=== PATIENT | female | born 1940 ===

== ENCOUNTER 2020-12-01 18:06 | Inpatient (IN) | payer BC, MEDICARE ==
[2020-12-01] MEDS ORDERED: VANCOMYCIN IV PER PHARMACY 1 EACH MISC MISCELLANE PRN (20:32)
[2020-12-01] MEDS ORDERED: hydrOXYzine pamoate 25 MG CAP PO PRN (20:34)
[2020-12-01] MEDS ORDERED: VANCOMYCIN 1,250 MG in SODIUM CHLORIDE 0.9% 250 ML IVPB ONE (21:00)
[2020-12-01 21:22] LABS: Basophils % (A) 0 %; Eosinophils # (A) 0.2 k/uL (0-0.7); Eosinophils % (A) 2 %; HCT 30.7 % (34.0-46.0); HGB 9.7 gm/dL (11.4-16.0); Hypochromasia Marked; Lymphocytes # (A) 1.4 k/uL (1.0-4.8); Lymphocytes % (A) 14 %; MCH 31.8 pg (25.0-35.0); MCHC 31.6 g/dL (31.0-37.0); MCV 100.6 fL (80.0-100.0); Mean Platelet Volume 7.5; Monocytes # (A) 0.6 k/uL (0-1.0); Monocytes % (A) 6 %; Neutrophils # (A) 7.3 k/uL (1.3-7.7); Neutrophils % (A) 76 %; Platelet Count 345 k/uL (150-450); RBC 3.06 m/uL (3.80-5.40); RDW 13.3 % (11.5-15.5); WBC 9.5 k/uL (3.8-10.6)
[2020-12-01 21:30] LABS: ALT 8 U/L (4-34); AST 33 U/L (14-36); African American GFR (CKD) >90 (>60 ml/min/1.73 sqM); Albumin/Globulin Ratio 0.9; Alkaline Phosphatase 76 U/L (38-126); Anion Gap 14 mmol/L; Blood Urea Nitrogen 15 mg/dL (7-17); Calcium 8.5 mg/dL (8.4-10.2); Carbon Dioxide 19 mmol/L (22-30); Chloride 104 mmol/L (98-107); Globulin 3.3 g/dL; Glucose 81 mg/dL (74-99); Non-African American GFR(CKD) 83 (>60 ml/min/1.73 sqM); Potassium 3.8 mmol/L (3.5-5.1); Sodium 137 mmol/L (137-145); Total Bilirubin 0.6 mg/dL (0.2-1.3); Total Protein 6.3 g/dL (6.3-8.2)
[2020-12-01] MEDS: BACLOFEN 10 MG TAB PO SCH (21:40)
[2020-12-01] MEDS: HEPARIN SODIUM,PORCINE/PF 5,000 UNIT/0.5 ML SYRINGE SQ SCH (21:40)
[2020-12-01] MEDS: SODIUM CHLORIDE 0.9% 1,000 ML IV SCH (21:40)
[2020-12-02] MEDS: HEPARIN SODIUM,PORCINE/PF 5,000 UNIT/0.5 ML SYRINGE SQ SCH ×2 (07:45→21:15)
[2020-12-02] MEDS: METOPROLOL SUCCINATE (ER) 50 MG TAB.ER.24H PO SCH (07:45)
[2020-12-02] MEDS: ATORVASTATIN 40 MG TAB PO SCH (07:46)
[2020-12-02] MEDS: FAMOTIDINE 20 MG TAB PO SCH (07:46)
[2020-12-02] MEDS: BACLOFEN 10 MG TAB PO SCH ×3 (07:46→21:15)
[2020-12-02] MEDS: MEMANTINE 10 MG TAB PO SCH (07:46)
[2020-12-02] MEDS: CHOLESTYRAMINE (WITH SUGAR) 4 GM PACKET PO SCH (07:46)
[2020-12-02] MEDS: PANTOPRAZOLE 40 MG TABLET PO SCH (07:46)
[2020-12-02 07:59] LABS: African American GFR (CKD) >90 (>60 ml/min/1.73 sqM); Non-African American GFR(CKD) 84 (>60 ml/min/1.73 sqM)
[2020-12-02] MEDS ORDERED: PRAVASTATIN SODIUM 40 MG TAB PO SCH (09:00)
[2020-12-02] MEDS ORDERED: IBUPROFEN 400 MG TAB PO PRN (10:13)
[2020-12-02] MEDS ORDERED: MAGNESIUM HYDROXIDE 2,400 MG/10 ML CUP PO PRN ×2 (10:13)
[2020-12-02] MEDS ORDERED: traMADol 50 MG TAB PO PRN (10:13)
[2020-12-02] MEDS ORDERED: CALCIUM CARBONATE 500 MG CHEWABLE PO PRN (10:13)
[2020-12-02] MEDS: VANCOMYCIN 1,250 MG in SODIUM CHLORIDE 0.9% 250 ML IVPB SCH ×2 (10:41→23:55)
[2020-12-02] MEDS ORDERED: traMADol 50 MG TAB PO SCH (10:45)
--- NOTE | 2020-12-02 11:34 | P.HPIM ---
History of Present Illness Patient is an 80-year-old female transferred from [facility] because of the altered mental status and infection of the left shoulder. Patient had a left shoulder surgery about 2 weeks ago, diabetic surgeon is not available at this time because of which are as asked to transfer the patient here. Patient the is found to have infection of the left shoulder with an abscess in the sinus which was drained in ER at [facility] cultures were obtained at that time. Patient doesn't have any fevers. Denied much of the history from the patient patient is alert oriented 2 her baseline is unknown at this time. I jono vargas the patient consulted arthritic surgery here infectious disease will be consulted as well. Patient is also on tobramycin does have a PICC line unsure why she is on tobramycin we are trying to find out from the [place] [facility] where she is staying along his she is on tobramycin and the reason for tobramycin. was started on IV vancomycin. REVIEW OF SYSTEMS: Unable to obtain due to above-mentioned reasons PHYSICAL EXAMINATION: GENERAL: The patient is alert and oriented x2, not in any acute distress. Well developed, well nourished. HEENT: Pupils are round and equally reacting to light. EOMI. No scleral icterus. No conjunctival pallor. Normocephalic, atraumatic. No pharyngeal erythema. No thyromegaly. CARDIOVASCULAR: S1 and S2 present. No murmurs, rubs, or gallops. PULMONARY: Chest is clear to auscultation, no wheezing or crackles. ABDOMEN: Soft, nontender, nondistended, normoactive bowel sounds. No palpable organomegaly. MUSCULOSKELETAL: No joint swelling or deformity. EXTREMITIES: No cyanosis, clubbing, or pedal edema. Left shoulder is packed NEUROLOGICAL: Patient is confused unable to assess clearly doesn't appear to have any focal deficits SKIN: No rashes. Assessment and plan Altered mental status, toxic encephalopathy from left shoulder infection. Vi staril will be discontinued and avoid opiates, benzodiazepines, barbiturates and anticholinergic medications -Postoperative infection of the left shoulder patient had a sinus and an abscess drained, cultures were obtained at the other facility arthritic surgery was consulted patient was started on vancomycin tobramycin was discontinued. -History of dementia baseline is not clear -Gastroesophageal reflux disease -Hyperlipidemia -Hypertension -As per the history documented patient has history of seizures, but patient appears to be in tramadol significantly higher dose for pain, along with Vistar il. We'll cut down the dose of tramadol is continue Vistaril DVT prophylaxis: Subcutaneous heparin Past Medical History Past Medical History: Dementia, GERD/Reflux, Hyperlipidemia, Hypertension, Seizure Disorder Additional Past Medical History / Comment(s): urinay tract infection, History of Any Multi-Drug Resistant Organisms: None Reported Additional Past Surgical History / Comment(s): right humerous fx repair Past Anesthesia/Blood Transfusion Reactions: Unable to Obtain Past Psychological History: Unable to Obtain, Depression Smoking Status: Unknown if ever smoked Medications and Allergies Home Medications Medication Instructions Recorded Confirmed Type Acetaminophen [Tylenol] 500 mg PO Q6H PRN 12/01/20 12/01/20 History Atorvastatin [Lipitor] 40 mg PO HS@209912/01/20 12/01/20 History Calcium Carbonate [Tums] 1,000 mg PO TID PRN 12/01/20 12/01/20 History Cholestyramine (with Sugar) 4 gm PO DAILY@89912/01/20 12/01/20 History [Questran] Docusate [Colace] 100 mg PO BID@0900,209912/01/20 12/01/20 History Ibuprofen [Motrin] 400 mg PO Q6HR PRN 12/01/20 12/01/20 History Lactobacillus Acidophilus 1 tab PO BID@0900,1700 12/01/20 12/01/20 History [Acidophilus] Magnesium Hydroxide [Milk of 2,400 mg PO DAILY PRN 12/01/20 12/01/20 History Magnesia Concentrate] Magnesium Hydroxide [Milk of 2,400 mg PO Q72H PRN 12/01/20 12/01/20 History Magnesia] Memantine [Namenda] 10 mg PO BID@0900,209912/01/20 12/01/20 History Metoprolol Succinate [Toprol XL] 50 mg PO HS@209912/01/20 12/01/20 History Omeprazole 20 mg PO DAILY@0612/01/20 12/01/20 History Polyethylene Glycol 3350 [Miralax] 17 gm PO DAILY@0912/01/20 12/01/20 History Venlafaxine HCl ER [Effexor Xr] 150 mg PO DAILY@0912/01/2021 History traMADol HCL 100 mg PO Q12H PRN 12/01/20 12/01/20 History traMADol HCL 100 mg PO Q8H 12/01/20 12/01/20 History Tobramycin 140mg In 100ml 140 mg IVPB DAILY 12/02/20 12/02/20 History Allergies Allergy/AdvReac Type Severity Reaction Status Date / Time bupropion Allergy Unknown Verified 12/01/20 21:57 codeine Allergy Unknown Verified 12/01/20 21:57 fentanyl Allergy Unknown Verified 12/01/20 21:57 metoclopramide Allergy Unknown Verified 12/01/20 21:57 midazolam Allergy Unknown Verified 12/01/20 21:57 morphine Allergy Unknown Verified 12/01/20 21:57 nitrofurantoin Allergy Unknown Verified 12/01/20 21:57 simvastatin Allergy Unknown Verified 12/01/20 21:57 Physical Exam Vitals: Vital Signs Temp Pulse Resp BP Pulse Ox 12/02/20 07:08 98 F 74 17 163/66 98 12/02/20 02:00 98 F 69 16 140/70 100 12/01/20 20:00 18 12/01/20 19:52 98.2 F 68 16 136/61 98 Intake and Output 12/01/20 12/02/20 12/02/20 22:59 06:59 14:59 Other: Voiding Method Diaper # Voids 1 Weight 64 kg Results CBC & Chem 7: 12/01/20 21:08 12/02/20 07:15 Labs: Abnormal Lab Results - Last 24 Hours (Table) 12/01/20 12/01/20 Range/Units 21:08 21:08 RBC 3.06 L (3.80-5.40) m/uL Hgb 9.7 L (11.4-16.0) gm/dL Hct 30.7 L (34.0-46.0) % MCV 100.6 H (80.0-100.0) fL Carbon Dioxide 19 L (22-30) mmol/L Albumin 3.0 L (3.5-5.0) g/dL Thrombosis Risk Factor Assmnt - Choose All That Apply Any of the Below Risk Factors Present?: Yes Each Factor Represents 1 point: Medical pt on bed rest Other Risk Factors: Yes Each Risk Factor Represents 3 Points: Age 75 years or older Other congenital or acquired thrombophilia - If yes, enter type in comment: No Thrombosis Risk Factor Assessment Total Risk Factor Score: 4 Thrombosis Risk Factor Assessment Level: Moderate Risk
[2020-12-02] MEDS ORDERED: TOBRAMYCIN SULFATE 140 MG in SODIUM CHLORIDE 0.9% 100 ML IVPB SCH (12:00)
--- NOTE | 2020-12-02 12:24 | P.CNOR ---
History of Present Illness - HPI Consult date: 12/02/20 Requesting physician: Matt Covarrubias Consult reason: other (post-op infection) History of present illness: Patient comes to the hospital with left shoulder postop infection. Patient had surgery performed for left proximal humerus fracture on 11/09/[address] Flores in [facility], where IM cammy and screws were placed. Patient had follow up appointment with Dr. Flores on 11/23/2020 and there was concern for infection as shoulder was red for over a week. PICC line was placed and patient started on Tobramycin. With limited reports and wthout any CD containgin image, read of CT left shoulder performed at [place] on 12/01/20 showed an IM cammy and screws in left proximal humerus with displacement of of humeral head relative to orthopedic hardware. Patient seems to be in significant amount of pain during the encounter. She is lying semirecumbent in bed moaning in pain. Due to her mental status, patient is not able to answer questions in reasonable fashion. When asked where and when she had the surgery she is not able to answer. Patient denies chest pain, fever, shortness breath, nausea, vomiting, change in vision, loss of bowel/bladder control. Past Medical History Past Medical History: Dementia, GERD/Reflux, Hyperlipidemia, Hypertension, Seizure Disorder Additional Past Medical History / Comment(s): urinay tract infection, History of Any Multi-Drug Resistant Organisms: None Reported Additional Past Surgical History / Comment(s): right humerous fx repair Past Anesthesia/Blood Transfusion Reactions: Unable to Obtain Past Psychological History: Unable to Obtain, Depression Smoking Status: Unknown if ever smoked Medications and Allergies Home Medications Medication Instructions Recorded Confirmed Type Acetaminophen [Tylenol] 500 mg PO Q6H PRN 12/01/20 12/01/20 History Atorvastatin [Lipitor] 40 mg PO HS@209912/01/20 12/01/20 History Calcium Carbonate [Tums] 1,000 mg PO TID PRN 12/01/20 12/01/20 History Cholestyramine (with Sugar) 4 gm PO DAILY@0900 12/01/20 12/01/20 History [Questran] Docusate [Colace] 100 mg PO BID@0900,2100 12/01/20 12/01/20 History Ibuprofen [Motrin] 400 mg PO Q6HR PRN 12/01/20 12/01/20 History Lactobacillus Acidophilus 1 tab PO BID@0900,1700 12/01/20 12/01/20 History [Acidophilus] Magnesium Hydroxide [Milk of 2,400 mg PO DAILY PRN 12/01/20 12/01/20 History Magnesia Concentrate] Magnesium Hydroxide [Milk of 2,400 mg PO Q72H PRN 12/01/20 12/01/20 History Magnesia] Memantine [Namenda] 10 mg PO BID@0900,2100 12/01/20 12/01/20 History Metoprolol Succinate [Toprol XL] 50 mg PO HS@2100 12/01/20 12/01/20 History Omeprazole 20 mg PO DAILY@0600 12/01/20 12/01/20 History Polyethylene Glycol 3350 [Miralax] 17 gm PO DAILY@0900 12/01/20 12/01/20 History Venlafaxine HCl ER [Effexor Xr] 150 mg PO DAILY@0900 12/01/20 12/01/20 History traMADol HCL 100 mg PO Q12H PRN 12/01/20 12/01/20 History traMADol HCL 100 mg PO Q8H 12/01/20 12/01/20 History Tobramycin 140mg In 100ml 140 mg IVPB DAILY 12/02/20 12/02/20 History Allergies Allergy/AdvReac Type Severity Reaction Status Date / Time bupropion Allergy Unknown Verified 12/01/20 21:57 codeine Allergy Unknown Verified 12/01/20 21:57 fentanyl Allergy Unknown Verified 12/01/20 21:57 metoclopramide Allergy Unknown Verified 12/01/20 21:57 midazolam Allergy Unknown Verified 12/01/20 21:57 morphine Allergy Unknown Verified 12/01/20 21:57 nitrofurantoin Allergy Unknown Verified 12/01/20 21:57 simvastatin Allergy Unknown Verified 12/01/20 21:57 Physical Examination Left shoulder : Left shoulder anterior region erythematous, calor, fluctuant, actively draining purulent discharge. 2 lateral incisions are present, appear to have healed nicely. Patient is unable to abduct, flex left shoulder due to being in significant pain. Patient is neurovascularly intact in the left hand and distally. Radial pulses intact, 2+. Cap refill under 3 seconds in left hand. Patient is able to flex and extend left wrist. Patient has good analysis manager strength in left hand. Results - Labs Labs: Abnormal Lab Results - Last 24 Hours (Table) 12/01/20 12/01/20 Range/Units 21:08 21:08 RBC 3.06 L (3.80-5.40) m/uL Hgb 9.7 L (11.4-16.0) gm/dL Hct 30.7 L (34.0-46.0) % MCV 100.6 H (80.0-100.0) fL Carbon Dioxide 19 L (22-30) mmol/L Albumin 3.0 L (3.5-5.0) g/dL H & H 12/01/20 Range/Units 21:08 Hgb 9.7 L (11.4-16.0) gm/dL Hct 30.7 L (34.0-46.0) % Result Diagrams: 12/01/20 21:08 12/02/20 07:15 Assessment and Plan Assessment: 1. Left shoulder post-op infection Plan: 1. Left shoulder post-op infection - x-ray left shoulder ordered. Will review imaging and discuss plan with attending. Possible Incision and drainage 2. Appreciate medical management and ID management -started on Vanco 3. GI prophylaxis/DVT prophylaxis- Colace, Protonix; heparin 4. Pain management - stable at this time 5. PT/OT - nonweightbearing left arm Time with Patient: Less than 30
--- NOTE | 2020-12-02 12:26 | XR ---
EXAMINATION TYPE: XR shoulder complete LT DATE OF EXAM: 12/02/2020 COMPARISON: NONE HISTORY: Pain TECHNIQUE: 3 views submitted FINDINGS: Postsurgical change involving the left humerus. Diffuse osteopenia. Humeral neck fracture l ine persists. Apical pleural thickening. Chronic interstitial lung disease suspected. IMPRESSION: Postoperative change of the left shoulder with persistent offset at the level of humeral neck. No prior exams available for comparison.
[2020-12-02 12:29] LABS: Basophils # (A) 0.1 k/uL (0-0.2); Basophils % (A) 1 %; Eosinophils # (A) 0.2 k/uL (0-0.7); Eosinophils % (A) 2 %; HCT 35.7 % (34.0-46.0); HGB 10.8 gm/dL (11.4-16.0); Hypochromasia Marked; Lymphocytes # (A) 1.4 k/uL (1.0-4.8); Lymphocytes % (A) 15 %; MCH 31.2 pg (25.0-35.0); MCHC 30.4 g/dL (31.0-37.0); MCV 102.8 fL (80.0-100.0); Macrocytosis Slight; Mean Platelet Volume 9.1; Monocytes # (A) 0.8 k/uL (0-1.0); Monocytes % (A) 8 %; Neutrophils # (A) 7.2 k/uL (1.3-7.7); Neutrophils % (A) 74 %; Platelet Count 336 k/uL (150-450); RBC 3.47 m/uL (3.80-5.40); RDW 12.9 % (11.5-15.5); WBC 9.8 k/uL (3.8-10.6)
[2020-12-02] MEDS: LACTOBACILLUS ACIDOPH & BULGAR 1 EACH PACKET PO SCH (15:20)
--- NOTE | 2020-12-02 15:31 | P.PN ---
Progress Note - Text Progress Note Date: 12/02/20 After reviewing physical exam findings, imaging test and lab results, we would like to proceed with surgical intervention for the left shoulder. Dr. Montanez was able to review this case also. Our plan is to proceed with an incision and drainage with irrigation and debridement of the left shoulder, hardware removal with placement of antibiotic spacer. We would like to proceed with this on 12/03/2020. I was able to contact the patient's daughter over the phone regarding her current medical condition. We did discuss the risk and benefits of the procedure, she is in good understanding and would like to proceed. We are in the process of obtaining consent from her Nothing by mouth after midnight Pain control, continue use of current medication GI and DVT prophylaxis per primary medical service Medical recommendations Further recommendations to follow
[2020-12-02] MEDS: traMADol 50 MG TAB PO SCH ×2 (16:15→23:56)
[2020-12-02] MEDS: SODIUM CHLORIDE 0.9% 1,000 ML IV SCH ×2 (16:21→19:41)
[2020-12-02] MEDS: DOCUSATE 100 MG CAP PO SCH (21:15)
--- NOTE | 2020-12-02 23:37 | P.CONS ---
History of Present Illness - Reason for Consult Consult date: 12/02/20 left shoulder infection Requesting physician: Matt Covarrubias - Chief Complaint left shoulder pain and redness x few days - History of Present Illness History of present illness : Patient is 80-year-old female [place] [facility] resident who recently did have a left shoulder fracture patient is status post left proximal humerus fracture repair on 11/09/[address] Flores in the [facility] with the patient did have a IM cammy and screws placed on a follow-up visit on 11/23/2020 the patient was noticed to have left shoulder swelling and redness concerning for a joint infection patient did get a PICC line and was placed on tobramycin there is no clear history of if any cultures were done seem to be more of antibiotic treatment patient was sent to the [facility] hospital yesterday for worsening swelling redness and purulent drainage from her left shoulder area patient did have a CT of the left shoulder and was subsequently transferred to [facility] for further management on arrival at this facility patient was afebrile and no fever has been recorded s ubsequently did have a normal white count kidney function was normal x-rays of the shoulder postoperative changes of the left shoulder with persistent offset at the level of the humeral neck patient tobramycin was discontinued she was started on vancomycin infectious disease was consulted for further management of antibiotic therapy most information has been obtained from review the chart and nursing staff as the patient herself was not able to provide any history Review of system: Positive point has been mentioned in HPI complete review could not be obtained because of underlying mental status Past medical history : Reviewed, documented below Past surgical history : Reviewed, documented below Social history: Reviewed, documented below Medications: Reviewed, as documented below GENERAL DESCRIPTION: Elderly female lying in bed, no distress. No tachypnea or accessory muscle of respiration use. HEENT: Shows Pallor , no scleral icterus. Oral mucous membrane is dry. NECK: Trachea central, no thyromegaly. LUNGS: Unlabored breathing. Clear to auscultation anteriorly. No wheeze or ground crewman aircraft support ckle. HEART: S1, S2, regular rate and rhythm. ABDOMEN: Soft, no tenderness , guarding or rigidity EXTREMITIES: Left shoulder did have swelling redness and purulent drainage which was cultured. SKIN: No rash, no masses palpable. NEUROLOGICAL: The patient is lethargic but arousable orientation could not be determined LABS AND RADIOLOGY: Reviewed results see below Assessment : Patient presented to hospital with increasing swelling redness and pain to left shoulder area in this patient who did have recent left humeral fracture repair at the outside facility now presenting with in 2 weeks with love rgical site infection will need to cover for the both gram-positive as well as gram-negative pathogen Plan: 1-await orthopedics I&D of this area and deep cultures, may need removal of an infected hardware 2-vancomycin pharmacy to dose her with a target trough of 15 while watching her kidney function and Vanco trough closely. 3-cefepime 2 g every 12hr We will follow on clinical condition and cultures to further adjust medication if needed Past Medical History Past Medical History: Dementia, GERD/Reflux, Hyperlipidemia, Hypertension, Seizure Disorder Additional Past Medical History / Comment(s): urinay tract infection, History of Any Multi-Drug Resistant Organisms: None Reported Additional Past Surgical History / Comment(s): right humerous fx repair Past Anesthesia/Blood Transfusion Reactions: Unable to Obtain Past Psychological History: Unable to Obtain, Depression Smoking Status: Unknown if ever smoked Medications and Allergies Home Medications Medication Instructions Recorded Confirmed Type Acetaminophen [Tylenol] 500 mg PO Q6H PRN 12/01/20 12/01/20 History Atorvastatin [Lipitor] 40 mg PO HS@209912/01/20 12/01/20 History Calcium Carbonate [Tums] 1,000 mg PO TID PRN 12/01/20 12/01/20 History Cholestyramine (with Sugar) 4 gm PO DAILY@0900 12/01/20 12/01/20 History [Questran] Docusate [Colace] 100 mg PO BID@0900,209912/01/20 12/01/20 History Ibuprofen [Motrin] 400 mg PO Q6HR PRN 12/01/20 12/01/20 History Lactobacillus Acidophilus 1 tab PO BID@0900,1700 12/01/20 12/01/20 History [Acidophilus] Magnesium Hydroxide [Milk of 2,400 mg PO DAILY PRN 12/01/20 12/01/20 History Magnesia Concentrate] Magnesium Hydroxide [Milk of 2,400 mg PO Q72H PRN 12/01/20 12/01/20 History Magnesia] Memantine [Namenda] 10 mg PO BID@0900,2100 12/01/2012/01/21 History Metoprolol Succinate [Toprol XL] 50 mg PO HS@2100 12/01/20 12/01/20 History Omeprazole 20 mg PO DAILY@0612/01/20 12/01/20 History Polyethylene Glycol 3350 [Miralax] 17 gm PO DAILY@0912/01/20 12/01/20 History Venlafaxine HCl ER [Effexor Xr] 150 mg PO DAILY@0912/01/20 12/01/20 History traMADol HCL 100 mg PO Q12H PRN 12/01/20 12/01/20 History traMADol HCL 100 mg PO Q8H 12/01/20 12/01/20 History Tobramycin 140mg In 100ml 140 mg IVPB DAILY 12/02/20 12/02/20 History Allergies Allergy/AdvReac Type Severity Reaction Status Date / Time bupropion Allergy Unknown Verified 12/01/20 21:57 codeine Allergy Unknown Verified 12/01/20 21:57 fentanyl Allergy Unknown Verified 12/01/20 21:57 metoclopramide Allergy Unknown Verified 12/01/20 21:57 midazolam Allergy Unknown Verified 12/01/20 21:57 morphine Allergy Unknown Verified 12/01/20 21:57 nitrofurantoin Allergy Unknown Verified 12/01/20 21:57 simvastatin Allergy Unknown Verified 12/01/20 21:57 Physical Exam Vitals: Vital Signs Temp Pulse Resp BP Pulse Ox 12/02/20 14:00 98.6 F 67 18 154/73 97 12/02/20 07:08 98 F 74 17 163/66 98 12/02/20 02:00 98 F 69 16 140/70 100 12/01/20 20:00 18 12/01/20 19:52 98.2 F 68 16 136/61 98 Intake and Output 12/02/20 12/02/20 12/02/20 06:59 14:59 22:59 Other: # Voids 1 2 Results CBC & Chem 7: 12/02/20 07:15 12/02/20 07:15 Labs: Abnormal Lab Results - Last 24 Hours (Table) 12/01/20 12/01/20 12/02/20 Range/Units 21:08 21:08 07:15 RBC 3.06 L 3.47 L (3.80-5.40) m/uL Hgb 9.7 L 10.8 L (11.4-16.0) gm/dL Hct 30.7 L (34.0-46.0) % MCV 100.6 H 102.8 H (80.0-100.0) fL MCHC 30.4 L (31.0-37.0) g/dL Carbon Dioxide 19 L (22-30) mmol/L C-Reactive Protein (<1.0) mg/dL Albumin 3.0 L (3.5-5.0) g/dL 12/02/20 Range/Units 07:15 RBC (3.80-5.40) m/uL Hgb (11.4-16.0) gm/dL Hct (34.0-46.0) % MCV (80.0-100.0) fL MCHC (31.0-37.0) g/dL Carbon Dioxide (22-30) mmol/L C-Reactive Protein 19.9 H (<1.0) mg/dL Albumin (3.5-5.0) g/dL
[2020-12-03] MEDS ORDERED: PHENYLEPHRINE-0.9% NACL SYG 1,000 MCG/10 ML SYRINGE ONE (08:05)
[2020-12-03] MEDS ORDERED: PROPOFOL 10 MG/ML 20 ML VIAL IV ONE (08:05)
[2020-12-03] MEDS ORDERED: LIDOCAINE 1% INJ 10MG/ML (20 ML MDV) ONE (08:05)
[2020-12-03] MEDS ORDERED: HYDROmorphone (PF) 1 MG/ML ONE (08:05)
[2020-12-03] MEDS ORDERED: SUCCINYLCHOLINE CHLORIDE 100 MG/5 ML SYR IV ONE (08:05)
[2020-12-03] MEDS: traMADol 50 MG TAB PO SCH ×2 (08:12→17:30)
[2020-12-03] MEDS: BACLOFEN 10 MG TAB PO SCH ×3 (08:12→21:39)
[2020-12-03] MEDS: FAMOTIDINE 20 MG TAB PO SCH (08:12)
[2020-12-03] MEDS: ATORVASTATIN 40 MG TAB PO SCH (08:12)
[2020-12-03] MEDS: DOCUSATE 100 MG CAP PO SCH ×2 (08:12→21:39)
[2020-12-03] MEDS: CHOLESTYRAMINE (WITH SUGAR) 4 GM PACKET PO SCH (08:12)
[2020-12-03] MEDS: PANTOPRAZOLE 40 MG TABLET PO SCH (08:12)
[2020-12-03] MEDS: HEPARIN SODIUM,PORCINE/PF 5,000 UNIT/0.5 ML SYRINGE SQ SCH ×2 (08:13→21:39)
[2020-12-03] MEDS: MEMANTINE 10 MG TAB PO SCH (08:13)
[2020-12-03] MEDS: polyethylene glycoL 3350 17 GM POWD.PACK PO SCH (08:13)
[2020-12-03] MEDS: LACTOBACILLUS ACIDOPH & BULGAR 1 EACH PACKET PO SCH ×2 (08:13→17:30)
[2020-12-03] MEDS: METOPROLOL SUCCINATE (ER) 50 MG TAB.ER.24H PO SCH (08:13)
[2020-12-03] MEDS ORDERED: LACTATED RINGERS 1,000 ML IV ONE (08:15)
[2020-12-03] MEDS ORDERED: ceFAZolin 3,000 MG in SODIUM CHLORIDE 0.9% IRRIGATIO 3,000 ML IRRIGATION ONE ×2 (08:50→08:51)
[2020-12-03] MEDS ORDERED: TOBRAMYCIN IVPB SCH (09:00)
[2020-12-03] MEDS ORDERED: CEFEPIME 2 GM in SODIUM CHLORIDE 0.9% 100 ML IVPB SCH (09:00)
--- NOTE | 2020-12-03 09:46 | P.OP ---
Date of Procedure: 12/03/20 Preoperative Diagnosis: Deep infection left shoulder with history of intramedullary rodding left proximal humerus Catastrophic hardware failure left shoulder Postoperative Diagnosis: Same Procedure(s) Performed: Incision and drainage/irrigation and debridement left shoulder Removal of intramedullary cammy and locking screws left shoulder Anesthesia: MARIA ISABEL Surgeon: Valerio Montanez Home Service Demonstrator #1: Yoel Desai Estimated Blood Loss (ml): 50 Pathology: other (Deep cultures) Condition: stable Disposition: PACU Indications for Procedure: The patient's an 80-year-old female who previously with in the past month underwent intramedullary nailing of a left proximal humerus fracture who presents with evidence of a deep infection along with failure of fixation. She was transferred from an outside institution as her operating surgeon was not available to continue with her care. A discussion of the risks and benefits of operative intervention was made with power of compliance attorney. Informed consent was obtained. Risks to include persistence of infection need for subsequent procedures were discussed. Operative Findings: As below Description of Procedure: The patient was brought to the operating room, and after induction of general anesthesia was placed in a beachchair position. Bony prominences were appropriately padded. The left upper extremity was prepped and draped in normal fashion. The previous anterolateral left shoulder incision was opened at the distal 364 cm along with having significant purulent drainage. Remaining incision was opened with a scalpel. Blunt dissection was made down to the level of the deltoid. The previous placed cammy was immediately evident. Deep cultures were obtained. The end cap screw was removed. 2 proximal locking screws were evident and easily removed. The alignment jig was placed on the cammy. The lateral incision was then made over the distal locking screws. Blunt dissection was made down to the humeral shaft. The distal 2 locking screws were removed. The oblique locking screw was then found and removed. The cammy was easily removed. Pulsatile lavage was utilized copiously irrigating the wound down to level of the humeral shaft. 6 L was utilized. At this point I elected not to proceed with any type of spacer placement. The wound edges were sharply debrided with a scalpel removing the necrotic necrotic tissue. Sharp dissection was made down to level the humeral shaft. Several small bone fragments were also removed. The skin edges then loosely reapproximated with simple 3-0 nylon suture. A sterile dressing was applied in addition to a sling. The patient was awoken from general anesthesia and transferred to recovery room in fair condition. Blood loss was estimated at 50 mL. No crepitations were incurred. Sponge and needle counts were correct at the end the case. Guille WONG assisted during the major components the case to include positioning, exposure, debridement, and closure.
[2020-12-03] MEDS ORDERED: VANCOMYCIN TROUGH DUE 1 EACH MISC MISCELLANE ONE (10:00)
[2020-12-03 11:54] LABS: HCT 33.9 % (34.0-46.0); HGB 10.8 gm/dL (11.4-16.0); Hypochromasia Moderate; MCH 31.6 pg (25.0-35.0); MCHC 31.8 g/dL (31.0-37.0); MCV 99.5 fL (80.0-100.0); Mean Platelet Volume 7.9; Platelet Count 369 k/uL (150-450); RBC 3.41 m/uL (3.80-5.40); RDW 13.5 % (11.5-15.5); WBC 12.8 k/uL (3.8-10.6)
[2020-12-03 12:18] LABS: African American GFR (CKD) 88 (>60 ml/min/1.73 sqM); Anion Gap 18 mmol/L; Blood Urea Nitrogen 7 mg/dL (7-17); Calcium 8.5 mg/dL (8.4-10.2); Carbon Dioxide 11 mmol/L (22-30); Chloride 111 mmol/L (98-107); Glucose 118 mg/dL (74-99); Non-African American GFR(CKD) 76 (>60 ml/min/1.73 sqM); Sodium 140 mmol/L (137-145)
[2020-12-03 12:25] LABS: Potassium 3.7 mmol/L (3.5-5.1)
[2020-12-03] MEDS: VANCOMYCIN 1,250 MG in SODIUM CHLORIDE 0.9% 250 ML IVPB SCH (12:46)
--- NOTE | 2020-12-03 13:45 | P.PN ---
Subjective Patient is an 80-year-old female transferred from [facility] because of the altered mental status and infection of the left shoulder. Patient had a left shoulder surgery about 2 weeks ago, diabetic surgeon is not available at this time because of which are as asked to transfer the patient here. Patient the is found to have infection of the left shoulder with an abscess in the sinus which was drained in ER at [facility] cultures were obtained at that time. Patient doesn't have any fevers. Denied much of the history from the patient patient is alert oriented 2 her baseline is unknown at this time. I transfer the patient consulted arthritic surgery here infectious disease will be consulted as well. Patient is also on tobramycin does have a PICC line unsure why she is on tobramycin we are trying to find out from the half-way where she is staying along his she is on tobramycin and the reason for tobramycin. was started on IV vancomycin. 12/03/2020 Patient underwent incision and drainage and debridement of the left shoulder and removal of intramedullary cammy and locking screws in the left shoulder. Patient is drowsy sleepy just came out of 4 unable to get much of the history from the patient. Review of systems: Unable to obtain due to her clinical condition All inpatient medications were reviewed and appropriate changes in these medications as dictated in the interval history and assessment and plan. PHYSICAL EXAMINATION: GENERAL: The patient is alert and oriented x2, not in any acute distress. Well developed, well nourished. HEENT: Pupils are round and equally reacting to light. EOMI. No scleral icterus. No conjunctival pallor. Normocephalic, atraumatic. No pharyngeal erythema. No thyromegaly. CARDIOVASCULAR: S1 and S2 present. No murmurs, rubs, or gallops. PULMONARY: Chest is clear to auscultation, no wheezing or crackles. ABDOMEN: Soft, nontender, nondistended, normoactive bowel sounds. No palpable organomegaly. MUSCULOSKELETAL: No joint swelling or deformity. EXTREMITIES: No cyanosis, clubbing, or pedal edema. Left shoulder is packed NEUROLOGICAL: Patient is confused unable to assess clearly doesn't appear to have any focal deficits SKIN: No rashes. Assessment and plan Altered mental status, toxic encephalopathy from left shoulder infection. Vistaril will be discontinued and avoid opiates, benzodiazepines, barbiturates and anticholinergic medications -Postoperative infection of the left shoulder patient had a sinus and an abscess drained, cultures were obtained at the other facility , patient is presently on vancomycin patient underwent incision and drainage postoperative day 0, patient had removal of hardware as well. -History of dementia baseline is not clear -Gastroesophageal reflux disease -Hyperlipidemia -Hypertension -As per the history documented patient has history of seizures, but patient appears to be in tramadol significantly higher dose for pain, along with Vistaril. Tramadol dose was cut down and Vistaril was discontinued DVT prophylaxis: Subcutaneous heparin Objective - Vital Signs Vital signs: Vital Signs Temp 97.7 F 12/03/20 10:55 Pulse 73 12/03/20 13:21 Resp 16 12/03/20 10:38 BP 138/81 12/03/20 13:21 Pulse Ox 93 L 12/03/20 13:21 Intake & Output 12/02/20 12/03/20 12/03/20 18:59 06:59 18:59 Intake Total 652 Output Total 25 Balance 627 Intake: IV 652 Output: Estimated Blood Loss 25 Other: Voiding Method Diaper Diaper # Voids 1 0 # Bowel Movements 1 0 - Labs CBC & Chem 7: 12/03/20 11:00 12/03/20 11:00 Labs: Abnormal Lab Results - Last 24 Hours (Table) 12/03/20 12/03/20 Range/Units 11:00 11:00 WBC 12.8 H (3.8-10.6) k/uL RBC 3.41 L (3.80-5.40) m/uL Hgb 10.8 L (11.4-16.0) gm/dL Hct 33.9 L (34.0-46.0) % Chloride 111 H (98-107) mmol/L Carbon Dioxide 11 L (22-30) mmol/L Glucose 118 H (74-99) mg/dL Microbiology - Last 24 Hours (Table) 12/02/20 11:45 Gram Stain - Preliminary Shoulder - Left Wound Culture - Preliminary 12/02/20 11:45 Anaerobic Culture - Preliminary Shoulder - Left
[2020-12-03] MEDS: VANCOMYCIN 1,000 MG in SODIUM CHLORIDE 0.9% 250 ML IVPB SCH (14:27)
--- NOTE | 2020-12-03 19:08 | PN ---
PROGRESS NOTE DATE OF SERVICE: 12/03/2020 REASON FOR FOLLOWUP: Left shoulder infection. INTERVAL HISTORY: The patient was taken to the OR this morning. The patient is status post removal of the hardware and I and D of the left shoulder. The patient tolerated the procedure; currently slightly sleepy and lethargic and is not able to provide any history. No vomiting or diarrhea has been reported by nursing staff. PHYSICAL EXAMINATION: On examination, blood pressure 132/81 with a pulse of 73, temperature of 97.7. She is 93% on room air. GENERAL DESCRIPTION: General description is a middle-aged female lying in bed in no distress. RESPIRATORY SYSTEM: Unlabored breathing. Clear to auscultation anteriorly. HEART: S1, S2. Regular rate and rhythm. ABDOMEN: Soft. No tenderness. Left shoulder is currently dressed. No obvious drainage on the dressing. LABS: Hemoglobin is , white count 12.8, BUN of 7, creatinine 0.74. Culture with presumptive MRSA. DIAGNOSTIC IMPRESSION AND PLAN: Patient with a left shoulder abscess and cellulitis with a recent left shoulder fracture repair with hardware infection which has been removed. Culture with presumptive MRSA. Vancomycin will be continued. Adjust antibiotic further based on clinical response and continue supportive care. MMODL / IJN: [id number] /
[2020-12-04] MEDS: traMADol 50 MG TAB PO SCH ×4 (01:35→23:23)
[2020-12-04] MEDS: VANCOMYCIN 1,000 MG in SODIUM CHLORIDE 0.9% 250 ML IVPB SCH ×2 (01:36→14:20)
[2020-12-04] MEDS: PANTOPRAZOLE 40 MG TABLET PO SCH (08:41)
[2020-12-04] MEDS: CHOLESTYRAMINE (WITH SUGAR) 4 GM PACKET PO SCH (08:42)
[2020-12-04] MEDS: ATORVASTATIN 40 MG TAB PO SCH (08:42)
[2020-12-04] MEDS: HEPARIN SODIUM,PORCINE/PF 5,000 UNIT/0.5 ML SYRINGE SQ SCH ×2 (08:42→20:26)
[2020-12-04] MEDS: DOCUSATE 100 MG CAP PO SCH ×2 (08:42→20:25)
[2020-12-04] MEDS: FAMOTIDINE 20 MG TAB PO SCH (08:42)
[2020-12-04] MEDS: BACLOFEN 10 MG TAB PO SCH ×3 (08:42→21:11)
[2020-12-04] MEDS: LACTOBACILLUS ACIDOPH & BULGAR 1 EACH PACKET PO SCH ×2 (08:42→17:30)
[2020-12-04] MEDS: MEMANTINE 10 MG TAB PO SCH (08:43)
[2020-12-04] MEDS: polyethylene glycoL 3350 17 GM POWD.PACK PO SCH (08:43)
[2020-12-04] MEDS: METOPROLOL SUCCINATE (ER) 50 MG TAB.ER.24H PO SCH (08:43)
--- NOTE | 2020-12-04 09:04 | P.PN ---
Subjective Patient is an 80-year-old female transferred from [facility] because of the altered mental status and infection of the left shoulder. Patient had a left shoulder surgery about 2 weeks ago, diabetic surgeon is not available at this time because of which are as asked to transfer the patient here. Patient the is found to have infection of the left shoulder with an abscess in the sinus which was drained in ER at [facility] cultures were obtained at that time. Patient doesn't have any fevers. Denied much of the history from the patient patient is alert oriented 2 her baseline is unknown at this time. I transfer the patient consulted arthritic surgery here infectious disease will be consulted as well. Patient is also on tobramycin does have a PICC line unsure why she is on tobramycin we are trying to find out from the longterm where she is staying along his she is on tobramycin and the reason for tobramycin. was started on IV vancomycin. 12/03/2020 Patient underwent incision and drainage and debridement of the left shoulder and removal of intramedullary cammy and locking screws in the left shoulder. Patient is drowsy sleepy just came out of 4 unable to get much of the history from the patient. 12/04/2020 Patient is sleeping of bradycardia patient sleeps all day. Patient the doesn't know need is not taking any of her medications. Although patient is getting IV vancomycin. Patient is alert oriented 1. Patient is not agitated at this time. Patient did not have any fever but had some leukocytosis of 12,000 white blood cell count. Wound cultures are showing MRSA infectious disease is following the patient. Review of systems: Unable to obtain due to her clinical condition All inpatient medications were reviewed and appropriate changes in these medications as dictated in the interval history and assessment and plan. PHYSICAL EXAMINATION: GENERAL: The patient is alert and oriented x2, not in any acute distress. Well developed, well nourished. HEENT: Pupils are round and equally reacting to light. EOMI. No scleral icterus. No conjunctival pallor. Normocephalic, atraumatic. No pharyngeal erythema. No thyromegaly. CARDIOVASCULAR: S1 and S2 present. No murmurs, rubs, or gallops. PULMONARY: Chest is clear to auscultation, no wheezing or crackles. ABDOMEN: Soft, nontender, nondistended, normoactive bowel sounds. No palpable organomegaly. MUSCULOSKELETAL: No joint swelling or deformity. EXTREMITIES: No cyanosis, clubbing, or pedal edema. Left shoulder is packed NEUROLOGICAL: Patient is confused unable to assess clearly doesn't appear to have any focal deficits SKIN: No rashes. Assessment and plan Altered mental status, toxic encephalopathy from left shoulder infection. Vistaril will be discontinued and avoid opiates, benzodiazepines, barbiturates and anticholinergic medications -Postoperative infection of the left shoulder patient had a sinus and an abscess drained, cultures were obtained at the other facility , patient is presently on vancomycin patient underwent incision and drainage postoperative day 0, patient had removal of hardware as well. -History of dementia baseline is not clear -Gastroesophageal reflux disease -Hyperlipidemia -Hypertension -As per the history documented patient has history of seizures, but patient appears to be in tramadol significantly higher dose for pain, along with Vistaril. Tramadol dose was cut down and Vistaril was discontinued DVT prophylaxis: Subcutaneous heparin Objective - Vital Signs Vital signs: Vital Signs Temp 99.6 F 12/04/20 07:35 Pulse 91 12/04/20 07:35 Resp 16 12/04/20 07:35 BP 112/76 12/04/20 07:35 Pulse Ox 96 12/04/20 07:35 Intake & Output 12/03/20 12/04/20 12/04/20 18:59 06:59 18:59 Intake Total 652 Output Total 25 Balance 627 Intake: IV 652 Output: Estimated Blood Loss 25 Other: Voiding Method Diaper Diaper Diaper # Voids 1 # Bowel Movements 0 - Labs CBC & Chem 7: 12/03/20 11:00 12/03/20 11:00 Labs: Abnormal Lab Results - Last 24 Hours (Table) 12/03/20 12/03/20 Range/Units 11:00 11:00 WBC 12.8 H (3.8-10.6) k/uL RBC 3.41 L (3.80-5.40) m/uL Hgb 10.8 L (11.4-16.0) gm/dL Hct 33.9 L (34.0-46.0) % Chloride 111 H (98-107) mmol/L Carbon Dioxide 11 L (22-30) mmol/L Glucose 118 H (74-99) mg/dL Microbiology - Last 24 Hours (Table) 12/03/20 09:15 Wound Culture - Preliminary Shoulder - Left 12/03/20 09:15 Wound Culture - Preliminary Shoulder - Left 12/02/20 11:45 Gram Stain - Preliminary Shoulder - Left Wound Culture - Preliminary Presumptive MRSA
[2020-12-04] MEDS: SODIUM CHLORIDE 0.9% 1,000 ML IV SCH (10:13)
--- NOTE | 2020-12-04 10:44 | P.PN ---
Subjective Progress Note Date: 12/04/20 Principal diagnosis: Status post incision and drainage with irrigation and debridement, hardware removal left shoulder Patient evaluated today at bedside, she is resting in her hospital bed. Her mental status/mental state is about baseline at this time. She is able to answer some questions regarding the pain and symptoms in her left shoulder, she states that it is feeling a little bit better. No other acute events overnight Objective - Vital Signs Vital signs: Vital Signs Temp 99.6 F 12/04/20 07:35 Pulse 91 12/04/20 07:35 Resp 16 12/04/20 07:35 BP 112/76 12/04/20 07:35 Pulse Ox 96 12/04/20 07:35 Intake & Output 12/03/20 12/04/20 12/04/20 18:59 06:59 18:59 Intake Total 652 Output Total 25 Balance 627 Intake: IV 652 Output: Estimated Blood Loss 25 Other: Voiding Method Diaper Diaper Diaper # Voids 1 # Bowel Movements 0 - Exam Left upper extremity: Postoperative bandage was removed today bedside, stitches are all in good position and condition. There is no active drainage visualized. The erythema is much improved at this time. She is utilizing the arm sling. The skin is warm to touch, compartments of the arm are soft touch. The radial and ulnar pulses are 2+. - Labs CBC & Chem 7: 12/03/20 11:00 12/03/20 11:00 Labs: Abnormal Lab Results - Last 24 Hours (Table) 12/03/20 12/03/20 Range/Units 11:00 11:00 WBC 12.8 H (3.8-10.6) k/uL RBC 3.41 L (3.80-5.40) m/uL Hgb 10.8 L (11.4-16.0) gm/dL Hct 33.9 L (34.0-46.0) % Chloride 111 H (98-107) mmol/L Carbon Dioxide 11 L (22-30) mmol/L Glucose 118 H (74-99) mg/dL Microbiology - Last 24 Hours (Table) 12/03/20 09:15 Gram Stain - Preliminary Shoulder - Left Wound Culture - Preliminary 12/03/20 09:15 Gram Stain - Preliminary Shoulder - Left Wound Culture - Preliminary 12/02/20 11:45 Gram Stain - Preliminary Shoulder - Left Wound Culture - Preliminary Presumptive MRSA Assessment and Plan Assessment: Status post incision and drainage with irrigation and debridement, hardware removal left shoulder Plan: Pain control, continue with current medication GI and DVT prophylaxis per primary medical service Continue use of arm sling at this time Infectious disease recommendations appreciated Other medical reimbursement specialist recommendations Nonweightbearing left upper extremity We'll continue to follow during inpatient stay Time with Patient: Less than 30
[2020-12-04 11:02] LABS: HCT 30.8 % (37.2-46.3); HGB 9.3 g/dL (12.0-15.0); MCH 30.2 pg (27.0-32.0); MCHC 30.2 g/dL (32.0-37.0); Platelet Count 328 X 10*3/uL (140-440); RBC 3.08 X 10*6/uL (4.10-5.20); RDW 13.3 % (11.5-14.5); WBC 9.44 X 10*3/uL (4.50-10.00)
[2020-12-04 11:55] LABS: African American GFR (CKD) 60.8 (60.0-200.0); Anion Gap 20.8 mmol/L (4.00-12.00); Calcium 7.8 mg/dL (8.7-10.3); Carbon Dioxide 13.2 mmol/L (21.6-31.8); Non-African American GFR(CKD) 52.4 (60.0-200.0); Potassium 3.2 mmol/L (3.5-5.5)
--- NOTE | 2020-12-04 18:36 | PN ---
PROGRESS NOTE DATE OF SERVICE: 12/04/2020 REASON FOR FOLLOWUP: Left shoulder abscess and cellulitis The patient is currently afebrile. The patient remains to be non verbal. He is unable to provide any history. No vomiting, diarrhea other changes reported by nursing staff. PHYSICAL EXAMINATION: Blood pressure 111/73 with a pulse of 94, temperature 98.2. She is 96% on room air. General description is an elderly female lying in bed in no distress. Respiratory system: Unlabored breathing. Clear to auscultation anteriorly. Heart S1, S2. Regular rate and rhythm. Abdomen soft, no tenderness. Left foot is currently dressed. No drainage on the dressing. LABS: Hemoglobin 9.1, white count 9.44, creatinine 1.0. Wound culture with MRSA. DIAGNOSTIC IMPRESSION AND PLAN: Patient with MRSA left shoulder abscess status post surgical debridement tomorrow of the infected hardware. The patient already has a PICC line. Plan is for vancomycin, pharmacy to dose, at least 6 weeks and close outpatient followup. MMODL / IJN: [id number] /
[2020-12-05] MEDS: VANCOMYCIN 1,000 MG in SODIUM CHLORIDE 0.9% 250 ML IVPB SCH ×2 (00:19→13:40)
[2020-12-05] MEDS: QUEtiapine 25 MG TAB PO PRN (01:34)
[2020-12-05] MEDS: SODIUM CHLORIDE 0.9% 1,000 ML IV SCH (04:52)
[2020-12-05] MEDS: HEPARIN SODIUM,PORCINE/PF 5,000 UNIT/0.5 ML SYRINGE SQ SCH ×2 (08:19→20:27)
[2020-12-05] MEDS: LACTOBACILLUS ACIDOPH & BULGAR 1 EACH PACKET PO SCH ×2 (08:24→16:46)
[2020-12-05] MEDS: traMADol 50 MG TAB PO SCH ×3 (08:25→23:10)
[2020-12-05] MEDS: FAMOTIDINE 20 MG TAB PO SCH (08:27)
[2020-12-05] MEDS: MEMANTINE 10 MG TAB PO SCH (08:27)
[2020-12-05] MEDS: ATORVASTATIN 40 MG TAB PO SCH (08:27)
[2020-12-05] MEDS: BACLOFEN 10 MG TAB PO SCH ×3 (08:27→20:31)
[2020-12-05] MEDS: PANTOPRAZOLE 40 MG TABLET PO SCH (08:27)
[2020-12-05] MEDS: DOCUSATE 100 MG CAP PO SCH ×2 (08:27→20:30)
[2020-12-05] MEDS: CHOLESTYRAMINE (WITH SUGAR) 4 GM PACKET PO SCH (08:27)
[2020-12-05] MEDS: polyethylene glycoL 3350 17 GM POWD.PACK PO SCH (08:28)
[2020-12-05] MEDS: METOPROLOL SUCCINATE (ER) 50 MG TAB.ER.24H PO SCH (08:28)
[2020-12-05 12:02] LABS: African American GFR (CKD) 60.8 (60.0-200.0); Anion Gap 16.9 mmol/L (4.00-12.00); Calcium 7.9 mg/dL (8.7-10.3); Carbon Dioxide 16.1 mmol/L (21.6-31.8); Non-African American GFR(CKD) 52.4 (60.0-200.0); Potassium 2.9 mmol/L (3.5-5.5)
--- NOTE | 2020-12-05 12:18 | P.PN ---
Subjective Progress Note Date: 12/05/20 Principal diagnosis: Status post incision and drainage with irrigation and debridement, hardware removal left shoulder Patient evaluated today at bedside, she is resting in her hospital bed. Her mental status/mental state is about baseline at this time. No other acute events overnight Objective - Vital Signs Vital signs: Vital Signs Temp 98.8 F 12/05/20 08:00 Pulse 71 12/05/20 08:00 Resp 18 12/05/20 08:25 BP 158/73 12/05/20 08:00 Pulse Ox 95 12/05/20 08:30 Intake & Output 12/04/20 12/05/20 12/05/20 18:59 06:59 18:59 Intake Total 850 Balance 850 Intake: Intake, IV Titration 850 Amount Sodium Chloride 0.9% 1, 600 000 ml @ 50 mls/hr IV . Q20H [facility] Rx#:[id number] Vancomycin 1,000 mg In 250 Sodium Chloride 0.9% 250 ml @ 125 mls/hr IVPB Q12H [facility] Rx#:[id number] Other: Voiding Method Diaper Diaper # Voids 1 # Bowel Movements 0 - Exam Left upper extremity: Incision is clean, dry and intact, sutures are all in good position. There is no active drainage visualized. The erythema is much improved at this time. She is utilizing the arm sling. The skin is warm to touch, compartments of the arm are soft touch. The radial and ulnar pulses are 2+. - Labs CBC & Chem 7: 12/04/20 06:28 12/05/20 07:00 Labs: Abnormal Lab Results - Last 24 Hours (Table) 12/05/20 Range/Units 07:00 Potassium 2.9 L (3.5-5.5) mmol/L Chloride 112 H (96-109) mmol/L Carbon Dioxide 16.1 L (21.6-31.8) mmol/L Anion Gap 16.90 H (4.00-12.00) mmol/L BUN 6.0 L (9.0-27.0) mg/dL Est GFR (CKD-EPI)NonAf 52.4 L (60.0-200.0) BUN/Creatinine Ratio 6.00 L (12.00-20.00) Ratio Calcium 7.9 L (8.7-10.3) mg/dL Microbiology - Last 24 Hours (Table) 12/02/20 11:45 Gram Stain - Final Shoulder - Left Wound Culture - Final Methicillin resist S. aureus 12/02/20 11:45 Anaerobic Culture - Preliminary Shoulder - Left 12/03/20 09:15 Gram Stain - Preliminary Shoulder - Left Wound Culture - Preliminary 12/03/20 09:15 Gram Stain - Preliminary Shoulder - Left Wound Culture - Preliminary Assessment and Plan Assessment: Status post incision and drainage with irrigation and debridement, hardware removal left shoulder Plan: Pain control, continue with current medication GI and DVT prophylaxis per primary medical service Continue use of arm sling at this time Infectious disease recommendations appreciated Other medical billing representative recommendations Nonweightbearing left upper extremity Discharge planning: An orthopedic standpoint, the patient remained stable for discharge to rehab. Time with Patient: Less than 30
[2020-12-05] MEDS ORDERED: POTASSIUM CHLORIDE ER 20 MEQ TAB.ER PO SCH (14:00)
[2020-12-05] MEDS: POTASSIUM CHLORIDE 20 MEQ in WATER FOR INJECTION 1 100ML.BAG IVPB SCH ×4 (14:29→20:26)
--- NOTE | 2020-12-05 15:06 | P.PN ---
Subjective Progress Note Date: 12/05/20 Patient is an 80-year-old female transferred from [facility] because of the altered mental status and infection of the left shoulder. Patient had a left shoulder surgery about 2 weeks ago, diabetic surgeon is not available at this time because of which are as asked to transfer the patient here. Patient the is found to have infection of the left shoulder with an abscess in the sinus which was drained in ER at [facility] cultures were obtained at that time. Patient doesn't have any fevers. Denied much of the history from the patient patient is alert oriented 2 her baseline is unknown at this time. I transfer the patient consulted arthritic surgery here infectious disease will be consulted as well. Patient is also on tobramycin does have a PICC line unsure why she is on tobramycin we are trying to find out from the half-way where she is staying along his she is on tobramycin and the reason for tobramycin. was started on IV vancomycin. 12/03/2020 Patient underwent incision and drainage and debridement of the left shoulder and removal of intramedullary cammy and locking screws in the left shoulder. Patient is drowsy sleepy just came out of 4 unable to get much of the history from the patient. 12/04/2020 Patient is sleeping of bradycardia patient sleeps all day. Patient the doesn't know need is not taking any of her medications. Although patient is getting IV vancomycin. Patient is alert oriented 1. Patient is not agitated at this time. Patient did not have any fever but had some leukocytosis of 12,000 white blood cell count. Wound cultures are showing MRSA infectious disease is following the patient. 12/05/2020 Patient is seen in follow-up this morning and is being closely followed by orthopedics and has been cleared to return to [facility]. Patient does have a PICC line and will require 6 weeks of IV antibiotic therapy in the form of vancomycin with infectious disease following closely. Cultures are showing MRSA. Sodium is elevated at 145 and will discontinue IV fluids. Potassium found to be critically low at 2.9 and will replace per protocol and repeat labs. Patient will be returning to [facility] and awaiting authorization from insurance. Social work is following and working on discharge planning. Review of systems: Unable to obtain due to her clinical condition All inpatient medications were reviewed and appropriate changes in these medications as dictated in the interval history and assessment and plan. PHYSICAL EXAMINATION: GENERAL: The patient is alert and oriented x2, not in any acute distress. Well developed, well nourished. HEENT: Pupils are round and equally reacting to light. EOMI. No scleral icterus. No conjunctival pallor. Normocephalic, atraumatic. No pharyngeal erythema. No thyromegaly. CARDIOVASCULAR: S1 and S2 present. No murmurs, rubs, or gallops. PULMONARY: Chest is clear to auscultation, no wheezing or crackles. ABDOMEN: Soft, nontender, nondistended, normoactive bowel sounds. No palpable organomegaly. MUSCULOSKELETAL: No joint swelling or deformity. EXTREMITIES: No cyanosis, clubbing, or pedal edema. Left shoulder is packed NEUROLOGICAL: Patient is confused unable to assess clearly doesn't appear to have any focal deficits SKIN: No rashes. Assessment and plan -Altered mental status, toxic encephalopathy from left shoulder infection. Vistaril will be discontinued and avoid opiates, benzodiazepines, barbiturates and anticholinergic medications -Postoperative infection of the left shoulder, status post incision and drainage with removal of hardware with orthopedics with culture showing MRSA , patient is presently on vancomycin patient underwent incision and drainage postoperative day 1 -History of dementia baseline is not clear -Hypokalemia, currently 2.9 and being replaced per protocol and will repeat labs -Gastroesophageal reflux disease -Hyperlipidemia -Hypertension -As per the history documented patient has history of seizures, but patient appe ars to be in tramadol significantly higher dose for pain, along with Vistaril. Tramadol dose was cut down and Vistaril was discontinued -DVT prophylaxis: Subcutaneous heparin -No code Plan: Continue to encourage increased oral intake. Patient is maintained on IV antibiotics with infectious disease following and plans are for continued IV antibiotic therapy for 6 weeks in the outpatient setting. Patient was seen and evaluated by orthopedics and has been cleared for discharge and recommending outpatient follow-up at their clinic. Patient continues to be lethargic although arousable and needs encouragement with meals and oral intake. Will limit use of narcotics and continue with Ultram 3 times a day as needed. Potassium was extremely low at 2.9 today and will replace per protocol with repeat labs. Social work is following and awaiting authorization from insurance to return to [facility]. Possible discharge in 24 hours. Objective - Vital Signs Vital signs: Vital Signs Temp 98.8 F 12/05/20 08:00 Pulse 71 12/05/20 08:00 Resp 18 12/05/20 08:25 BP 158/73 12/05/20 08:00 Pulse Ox 95 12/05/20 08:30 Intake & Output 12/04/20 12/05/20 12/05/20 18:59 06:59 18:59 Intake Total 850 Balance 850 Intake: Intake, IV Titration 850 Amount Sodium Chloride 0.9% 1, 600 000 ml @ 50 mls/hr IV . Q20H [facility] Rx#:[id number] Vancomycin 1,000 mg In 250 Sodium Chloride 0.9% 250 ml @ 125 mls/hr IVPB Q12H [facility] Rx#:[id number] Other: Voiding Method Diaper Diaper # Voids 1 # Bowel Movements 0 - Labs CBC & Chem 7: 12/04/20 06:28 12/05/20 07:00 Labs: Abnormal Lab Results - Last 24 Hours (Table) 12/04/20 12/04/20 Range/Units 06:28 06:28 RBC 3.08 L (4.10-5.20) X 10*6/uL Hgb 9.3 L (12.0-15.0) g/dL Hct 30.8 L (37.2-46.3) % MCV 100.0 H (80.0-97.0) fL MCHC 30.2 L (32.0-37.0) g/dL Potassium 3.2 L (3.5-5.5) mmol/L Carbon Dioxide 13.2 L (21.6-31.8) mmol/L Anion Gap 20.80 H (4.00-12.00) mmol/L BUN 8.0 L (9.0-27.0) mg/dL Est GFR (CKD-EPI)NonAf 52.4 L (60.0-200.0) BUN/Creatinine Ratio 8.00 L (12.00-20.00) Ratio Calcium 7.8 L (8.7-10.3) mg/dL Microbiology - Last 24 Hours (Table) 12/02/20 11:45 Gram Stain - Final Shoulder - Left Wound Culture - Final Methicillin resist S. aureus 12/02/20 11:45 Anaerobic Culture - Preliminary Shoulder - Left 12/03/20 09:15 Gram Stain - Preliminary Shoulder - Left Wound Culture - Preliminary 12/03/20 09:15 Gram Stain - Preliminary Shoulder - Left Wound Culture - Preliminary
--- NOTE | 2020-12-05 19:26 | PN ---
PROGRESS NOTE DATE OF SERVICE: 12/05/2020 REASON FOR FOLLOWUP: Left shoulder infection, MRSA. INTERVAL HISTORY: The patient is afebrile. The patient is currently breathing comfortably on room air. The patient remains sleepy and lethargic, unable to provide any history. No vomiting, diarrhea or other changes reported by the nursing staff. PHYSICAL EXAMINATION: On examination, blood pressure 162/79, pulse of 93, temperature 97.8. She is 94% on room air. GENERAL DESCRIPTION: General description is an elderly female lying in bed in no distress. RESPIRATORY SYSTEM: Unlabored breathing. Clear to auscultation anteriorly. HEART: S1, S2. Regular rate and rhythm. ABDOMEN: Soft. No tenderness. Left shoulder is currently dressed. No drainage on the dressing. LABS: BUN of , creatinine 1.0. Culture positive for MRSA. DIAGNOSTIC IMPRESSION AND PLAN: Patient with MRSA left shoulder abscess, status post removal of the hardware and drainage of the abscess. The patient is covered with vancomycin. She already has the PICC line. Continue with vancomycin, Pharmacy to dose; target of 15 for a total of 6 weeks and close outpatient followup. MMODL / IJN: [id number] /
[2020-12-06] MEDS: VANCOMYCIN 1,000 MG in SODIUM CHLORIDE 0.9% 250 ML IVPB SCH (00:58)
[2020-12-06] MEDS: QUEtiapine 25 MG TAB PO PRN (04:22)
[2020-12-06] MEDS: ACETAMINOPHEN TAB 500 MG TAB PO PRN ×2 (04:22→23:17)
[2020-12-06] MEDS: PANTOPRAZOLE 40 MG TABLET PO SCH (07:57)
[2020-12-06] MEDS: traMADol 50 MG TAB PO SCH (07:57)
[2020-12-06] MEDS: CHOLESTYRAMINE (WITH SUGAR) 4 GM PACKET PO SCH (07:58)
[2020-12-06] MEDS: FAMOTIDINE 20 MG TAB PO SCH (07:58)
[2020-12-06] MEDS: LACTOBACILLUS ACIDOPH & BULGAR 1 EACH PACKET PO SCH ×2 (07:58→16:42)
[2020-12-06] MEDS: DOCUSATE 100 MG CAP PO SCH ×2 (07:58→23:18)
[2020-12-06] MEDS: BACLOFEN 10 MG TAB PO SCH ×3 (07:58→23:24)
[2020-12-06] MEDS: ATORVASTATIN 40 MG TAB PO SCH (07:58)
[2020-12-06] MEDS: polyethylene glycoL 3350 17 GM POWD.PACK PO SCH (07:59)
[2020-12-06] MEDS: METOPROLOL SUCCINATE (ER) 50 MG TAB.ER.24H PO SCH (07:59)
[2020-12-06] MEDS: MEMANTINE 10 MG TAB PO SCH (07:59)
[2020-12-06] MEDS: HEPARIN SODIUM,PORCINE/PF 5,000 UNIT/0.5 ML SYRINGE SQ SCH ×2 (08:30→23:18)
[2020-12-06 11:56] LABS: Basophils % (A) 1 %; Eosinophils # (A) 0.3 k/uL (0-0.7); Eosinophils % (A) 4 %; HCT 27.6 % (34.0-46.0); Hypochromasia Marked; Lymphocytes # (A) 1.6 k/uL (1.0-4.8); Lymphocytes % (A) 22 %; MCH 31.6 pg (25.0-35.0); MCHC 31.4 g/dL (31.0-37.0); MCV 100.9 fL (80.0-100.0); Macrocytosis Slight; Monocytes # (A) 0.5 k/uL (0-1.0); Monocytes % (A) 7 %; Neutrophils # (A) 4.6 k/uL (1.3-7.7); Neutrophils % (A) 65 %; Platelet Count 299 k/uL (150-450); RBC 2.73 m/uL (3.80-5.40); RDW 13.6 % (11.5-15.5); WBC 7.1 k/uL (3.8-10.6)
[2020-12-06] MEDS ORDERED: VANCOMYCIN TROUGH DUE 1 EACH MISC MISCELLANE ONE (12:00)
[2020-12-06 12:01] LABS: HGB 8.6 gm/dL (11.4-16.0)
[2020-12-06 12:15] LABS: African American GFR (CKD) 70 (>60 ml/min/1.73 sqM); Anion Gap 12 mmol/L; Blood Urea Nitrogen 5 mg/dL (7-17); Carbon Dioxide 16 mmol/L (22-30); Chloride 116 mmol/L (98-107); Glucose 114 mg/dL (74-99); Non-African American GFR(CKD) 61 (>60 ml/min/1.73 sqM); Potassium 3.8 mmol/L (3.5-5.1); Sodium 144 mmol/L (137-145)
[2020-12-06] MEDS ORDERED: VANCOMYCIN IV PER PHARMACY 1 EACH MISC MISCELLANE PRN (12:26)
--- NOTE | 2020-12-06 12:31 | P.PN ---
Subjective Progress Note Date: 12/06/20 Principal diagnosis: Status post incision and drainage with irrigation and debridement, hardware removal left shoulder Patient evaluated today at bedside, she is resting in her hospital bed. Her mental status/mental state is about baseline at this time. No other acute events overnight Objective - Vital Signs Vital signs: Vital Signs Temp 99.6 F 12/06/20 07:57 Pulse 107 H 12/06/20 07:57 Resp 20 12/06/20 07:57 BP 127/71 12/06/20 07:57 Pulse Ox 95 12/06/20 07:57 Intake & Output 12/05/20 12/06/20 12/06/20 18:59 06:59 18:59 Other: Voiding Method Diaper Diaper # Voids 3 1 - Exam Left upper extremity: Incision is clean, dry and intact, sutures are all in good position. There is no active drainage visualized. The erythema is much improved at this time. She is utilizing the arm sling. The skin is warm to touch, compartments of the arm are soft touch. The radial and ulnar pulses are 2+. - Labs CBC & Chem 7: 12/06/20 11:38 12/06/20 11:38 Labs: Abnormal Lab Results - Last 24 Hours (Table) 12/06/20 12/06/20 12/06/20 Range/Units 11:38 11:38 11:38 RBC 2.73 L (3.80-5.40) m/uL Hgb 8.6 L D (11.4-16.0) gm/dL Hct 27.6 L (34.0-46.0) % MCV 100.9 H (80.0-100.0) fL Chloride 116 H (98-107) mmol/L Carbon Dioxide 16 L (22-30) mmol/L BUN 5 L (7-17) mg/dL Glucose 114 H (74-99) mg/dL Vancomycin Trough 44.3 H* ug/mL Microbiology - Last 24 Hours (Table) 12/02/20 11:45 Gram Stain - Final Shoulder - Left Wound Culture - Final Methicillin resist S. aureus 12/03/20 09:15 Gram Stain - Final Shoulder - Left Wound Culture - Final Methicillin resist S. aureus 12/03/20 09:15 Gram Stain - Final Shoulder - Left Wound Culture - Final Methicillin resist S. aureus Assessment and Plan Assessment: Status post incision and drainage with irrigation and debridement, hardware removal left shoulder Plan: Pain control, continue with current medication GI and DVT prophylaxis per primary medical service Continue use of arm sling at this time Infectious disease recommendations appreciated Other medical dir recommendations Nonweightbearing left upper extremity Discharge planning: An orthopedic standpoint, the patient remained stable for discharge to rehab. Time with Patient: Less than 30
[2020-12-06] MEDS: MEGESTROL 400 MG/10 ML CUP PO SCH (14:36)
--- NOTE | 2020-12-06 20:01 | PN ---
PROGRESS NOTE DATE OF SERVICE: 12/06/2020 REASON FOR FOLLOWUP: Left shoulder abscess cellulitis. INTERVAL HISTORY: Patient is currently afebrile. The patient is breathing comfortably. The patient is not a very good historian, unable to provide any history. No vomiting, diarrhea or any other changes reported by the nursing staff. PHYSICAL EXAMINATION: Blood pressure 155/76, pulse of 77, temperature 98.7. She is 97% on 2 L nasal cannula. General description is an elderly female lying in bed in no distress. Respiratory system: Unlabored breathing. Clear to auscultation anteriorly. Heart S1, S2. Regular rate and rhythm. Abdomen: Soft. No tenderness. LABS: Hemoglobin 8.1, white count 7.1. BUN of 5, creatinine 0.89. Vancomycin trough is high. ASSESSMENT: Patient with left shoulder MRSA abscess with underlying infected hardware which has been removed. Patient is covered with vancomycin, dose needs to be cut back to keep the trough around 15 and monitor clinical course closely. MMODL / IJN: [id number] /
--- NOTE | 2020-12-07 03:18 | P.PN ---
Subjective Progress Note Date: 12/06/20 Patient is an 80-year-old female transferred from [facility] because of the altered mental status and infection of the left shoulder. Patient had a left shoulder surgery about 2 weeks ago, diabetic surgeon is not available at this time because of which are as asked to transfer the patient here. Patient the is found to have infection of the left shoulder with an abscess in the sinus which was drained in ER at [facility] cultures were obtained at that time. Patient doesn't have any fevers. Denied much of the history from the patient patient is alert oriented 2 her baseline is unknown at this time. I transfer the patient consulted arthritic surgery here infectious disease will be consulted as well. Patient is also on tobramycin does have a PICC line unsure why she is on tobramycin we are trying to find out from the long term where she is staying along his she is on tobramycin and the reason for tobramycin. was started on IV vancomycin. 12/03/2020 Patient underwent incision and drainage and debridement of the left shoulder and removal of intramedullary cammy and locking screws in the left shoulder. Patient is drowsy sleepy just came out of 4 unable to get much of the history from the patient. 12/04/2020 Patient is sleeping of bradycardia patient sleeps all day. Patient the doesn't know need is not taking any of her medications. Although patient is getting IV vancomycin. Patient is alert oriented 1. Patient is not agitated at this time. Patient did not have any fever but had some leukocytosis of 12,000 white blood cell count. Wound cultures are showing MRSA infectious disease is following the patient. 12/05/2020 Patient is seen in follow-up this morning and is being closely followed by orthopedics and has been cleared to return to [facility]. Patient does have a PICC line and will require 6 weeks of IV antibiotic therapy in the form of vancomycin with infectious disease following closely. Cultures are showing MRSA. Sodium is elevated at 145 and will discontinue IV fluids. Potassium found to be critically low at 2.9 and will replace per protocol and repeat labs. Patient will be returning to [facility] and awaiting authorization from insurance. Social work is following and working on discharge planning. 12/06/2020 Patient is seen and evaluated in follow up today and continues to refuse to eat and take medications stating she is tired and wants to be left alone. Encouraged oral intake and megase added. Patient had potassium replaced and repeat potassium is 3.8 today. Patient [id number] on IV vancomycin and trough high at 44 today and pharmacy to adjust dose. Infectious disease following closely. Patient has sling to the left upper extremity noted. Patient denies any chest pain or shortness of breath. Patient is afebrile. Patient was maintained on Ultram and has been discontinued as she continues to be extremely lethargic and will limit use of [employer] agents or narcotics. Continue with tylenol. Will repeat am labs and monitor closely. Review of systems: Unable to obtain due to her clinical condition All inpatient medications were reviewed and appropriate changes in these medications as dictated in the interval history and assessment and plan. PHYSICAL EXAMINATION: GENERAL: The patient is alert and oriented x2, continued lethargy. Well developed, well nourished. Temp is 97.7F, pulse is 67, respirations are 18, blood pressure is 155/76, oxygen saturation is 97% on 2 L via nasal cannula. HEENT: Pupils are round and equally reacting to light. EOMI. No scleral icterus. No conjunctival pallor. Normocephalic, atraumatic. No pharyngeal erythema. No thyromegaly. CARDIOVASCULAR: S1 and S2 muffled. PULMONARY: diminished breath sounds bilaterally with no wheezing or crackles. ABDOMEN: Soft, nontender, nondistended, normoactive bowel sounds. No palpable organomegaly. MUSCULOSKELETAL: No joint swelling or deformity. EXTREMITIES: No cyanosis, clubbing, or pedal edema. Left shoulder dressing is dry and sling noted NEUROLOGICAL: Patient is confused unable to assess clearly doesn't appear to h ave any focal deficits SKIN: No rashes. Assessment and plan: -Altered mental status, toxic encephalopathy from left shoulder infection -possible vancomycin toxicity -Postoperative infection of the left shoulder, status post incision and drainage with removal of hardware with orthopedics with culture showing MRSA -History of dementia baseline is not clear -Hypokalemia -Gastroesophageal reflux disease -Hyperlipidemia -Hypertension -As per the history documented patient has history of seizures -DVT prophylaxis: Subcutaneous heparin -No code Plan: Continue to encourage increased oral intake. Megace added. Patient is maintained on IV antibiotics in the form of vancomycin and trough was high today and will have pharmacy adjust the dose. infectious disease following and plans are for continued IV antibiotic therapy for 6 weeks in the outpatient setting. Patient was seen and evaluated by orthopedics and has been cleared for discharge and recommending outpatient follow-up at their clinic. Patient continues to be lethargic although arousable and needs encouragement with meals and oral intake. Will limit use of narcotics and discontinued Ultram. Potassium was replaced and repeat is 3.8. Will repeat am labs and monitor closely. Social work is following and awaiting authorization from insurance to return to [facility]. Prognosis is guarded. Objective - Vital Signs Vital signs: Vital Signs Temp 99.6 F 12/06/20 07:57 Pulse 107 H 12/06/20 07:57 Resp 20 12/06/20 07:57 BP 127/71 12/06/20 07:57 Pulse Ox 95 12/06/20 07:57 Intake & Output 12/05/20 12/06/20 12/06/20 18:59 06:59 18:59 Other: Voiding Method Diaper # Voids 3 1 - Labs CBC & Chem 7: 12/06/20 11:38 12/06/20 11:38 Labs: Abnormal Lab Results - Last 24 Hours (Table) 12/05/20 Range/Units 07:00 Potassium 2.9 L (3.5-5.5) mmol/L Chloride 112 H (96-109) mmol/L Carbon Dioxide 16.1 L (21.6-31.8) mmol/L Anion Gap 16.90 H (4.00-12.00) mmol/L BUN 6.0 L (9.0-27.0) mg/dL Est GFR (CKD-EPI)NonAf 52.4 L (60.0-200.0) BUN/Creatinine Ratio 6.00 L (12.00-20.00) Ratio Calcium 7.9 L (8.7-10.3) mg/dL Microbiology - Last 24 Hours (Table) 12/03/20 09:15 Gram Stain - Preliminary Shoulder - Left Wound Culture - Preliminary Presumptive MRSA 12/03/20 09:15 Gram Stain - Preliminary Shoulder - Left Wound Culture - Preliminary Presumptive MRSA
[2020-12-07 09:00] LABS: African American GFR (CKD) 67 (>60 ml/min/1.73 sqM); Anion Gap 12 mmol/L; Blood Urea Nitrogen 6 mg/dL (7-17); Calcium 9.4 mg/dL (8.4-10.2); Carbon Dioxide 17 mmol/L (22-30); Chloride 115 mmol/L (98-107); Glucose 110 mg/dL (74-99); Non-African American GFR(CKD) 58 (>60 ml/min/1.73 sqM); Potassium 3.4 mmol/L (3.5-5.1); Sodium 144 mmol/L (137-145)
[2020-12-07] MEDS: CHOLESTYRAMINE (WITH SUGAR) 4 GM PACKET PO SCH ×2 (09:08→11:36)
[2020-12-07] MEDS: METOPROLOL SUCCINATE (ER) 50 MG TAB.ER.24H PO SCH (09:08)
[2020-12-07] MEDS: DOCUSATE 100 MG CAP PO SCH ×3 (09:08→20:00)
[2020-12-07] MEDS: PANTOPRAZOLE 40 MG TABLET PO SCH ×2 (09:08→11:55)
[2020-12-07] MEDS: FAMOTIDINE 20 MG TAB PO SCH ×2 (09:08→11:56)
[2020-12-07] MEDS: BACLOFEN 10 MG TAB PO SCH ×2 (09:08→12:46)
[2020-12-07] MEDS: MEMANTINE 10 MG TAB PO SCH ×2 (09:08→12:47)
[2020-12-07] MEDS: ATORVASTATIN 40 MG TAB PO SCH ×2 (09:08→11:55)
[2020-12-07] MEDS: polyethylene glycoL 3350 17 GM POWD.PACK PO SCH ×2 (09:09→09:47)
[2020-12-07] MEDS: HEPARIN SODIUM,PORCINE/PF 5,000 UNIT/0.5 ML SYRINGE SQ SCH ×2 (09:09→20:00)
[2020-12-07] MEDS ORDERED: Potassium Replacement Protocol 1 EACH MISC MISCELLANE PRN (09:50)
--- NOTE | 2020-12-07 10:27 | P.PN ---
Subjective Progress Note Date: 12/07/20 Principal diagnosis: Status post incision and drainage with irrigation and debridement, hardware removal left shoulder Patient evaluated today at bedside, she is resting in her hospital bed. Her mental status/mental state is about baseline at this time. No other acute events overnight Objective - Vital Signs Vital signs: Vital Signs Temp 97.8 F 12/07/20 09:32 Pulse 104 H 12/07/20 09:32 Resp 24 12/07/20 09:32 BP 152/83 12/07/20 09:32 Pulse Ox 95 12/07/20 09:32 Intake & Output 12/06/20 12/07/20 12/07/20 18:59 06:59 18:59 Other: Voiding Method Diaper # Voids 3 1 # Bowel Movements 1 1 - Exam Left upper extremity: Incision is clean, dry and intact, sutures are all in good position. There is no active drainage visualized. She is utilizing the arm sling. The skin is warm to touch, compartments of the arm are soft touch. The radial and ulnar pulses are 2+. - Labs CBC & Chem 7: 12/06/20 11:38 12/07/20 07:49 Labs: Abnormal Lab Results - Last 24 Hours (Table) 12/06/20 12/06/20 12/06/20 Range/Units 11:38 11:38 11:38 RBC 2.73 L (3.80-5.40) m/uL Hgb 8.6 L D (11.4-16.0) gm/dL Hct 27.6 L (34.0-46.0) % MCV 100.9 H (80.0-100.0) fL Potassium (3.5-5.1) mmol/L Chloride 116 H (98-107) mmol/L Carbon Dioxide 16 L (22-30) mmol/L BUN 5 L (7-17) mg/dL Glucose 114 H (74-99) mg/dL Vancomycin Trough 44.3 H* ug/mL 12/07/20 Range/Units 07:49 RBC (3.80-5.40) m/uL Hgb (11.4-16.0) gm/dL Hct (34.0-46.0) % MCV (80.0-100.0) fL Potassium 3.4 L (3.5-5.1) mmol/L Chloride 115 H (98-107) mmol/L Carbon Dioxide 17 L (22-30) mmol/L BUN 6 L (7-17) mg/dL Glucose 110 H (74-99) mg/dL Vancomycin Trough ug/mL Microbiology - Last 24 Hours (Table) 12/03/20 09:15 Gram Stain - Final Shoulder - Left Wound Culture - Final Methicillin resist S. aureus 12/02/20 11:45 Anaerobic Culture - Final Shoulder - Left 12/03/20 09:15 Gram Stain - Final Shoulder - Left Wound Culture - Final Methicillin resist S. aureus 12/02/20 11:45 Gram Stain - Final Shoulder - Left Wound Culture - Final Methicillin resist S. aureus Assessment and Plan Assessment: Status post incision and drainage with irrigation and debridement, hardware removal left shoulder Plan: Pain control, continue with current medication GI and DVT prophylaxis per primary medical service Continue use of arm sling at this time Infectious disease recommendations appreciated Other electromedical equipment repairer recommendations Nonweightbearing left upper extremity Discharge planning: On an orthopedic standpoint, the patient remaines stable for discharge to rehab. Time with Patient: Less than 30
[2020-12-07 10:30] LABS: Vancomycin,Random 29.5 ug/mL
[2020-12-07] MEDS: LACTOBACILLUS ACIDOPH & BULGAR 1 EACH PACKET PO SCH ×2 (11:36→18:35)
[2020-12-07] MEDS: MEGESTROL 400 MG/10 ML CUP PO SCH (12:47)
[2020-12-07] MEDS: POTASSIUM CHLORIDE 10 MEQ in WATER FOR INJECTION 1 100ML.BAG IVPB SCH ×4 (12:51→16:54)
[2020-12-07 14:20] VITALS: BMI 34.6
--- NOTE | 2020-12-07 14:24 | PN ---
PROGRESS NOTE DATE OF SERVICE: 12/07/2020 REASON FOR FOLLOWUP: Left shoulder abscess and infected hardware, MRSA. INTERVAL HISTORY: The patient is afebrile. The patient is slightly more awake, alert. Oral intake remains poor. She was unable to provide history no vomiting, diarrhea or other changes reported by the nursing staff. PHYSICAL EXAMINATION: Blood pressure 152/83, pulse of 104, temperature 97.8. She is 95% on 2 L nasal cannula. GENERAL DESCRIPTION: General description is an elderly female lying in bed in no distress. RESPIRATORY SYSTEM: Unlabored breathing. Decreased breath sounds at the bases. No wheeze. HEART: S1, S2. Regular rate and rhythm. ABDOMEN: Soft. No tenderness. Left shoulder is currently dressed. LABS: BUN of 6, creatinine 0.93. Vancomycin is down to 29.5. DIAGNOSTIC IMPRESSION AND PLAN: Patient with MRSA left shoulder abscess with infected hardware which has been removed. Did have high vancomycin trough and high risk of nephrotoxicity. Will check with the nurse case manager if the patient is able to get daptomycin in the retirement; that will be a safer option. If not, will continue with the vancomycin and close monitoring of her kidney function. Duration of antibiotic will be at least 6 weeks. MMODL / IJN: [id number] /
[2020-12-07] MEDS ORDERED: IBUPROFEN 200 MG TAB PO PRN (15:51)
[2020-12-07] MEDS ORDERED: QUEtiapine 25 MG TAB PO PRN (15:51)
--- NOTE | 2020-12-07 16:34 | P.PN ---
Subjective Progress Note Date: 12/07/20 Patient is an 80-year-old female transferred from [facility] because of the altered mental status and infection of the left shoulder. Patient had a left shoulder surgery about 2 weeks ago, diabetic surgeon is not available at this time because of which are as asked to transfer the patient here. Patient the is found to have infection of the left shoulder with an abscess in the sinus which was drained in ER at [facility] cultures were obtained at that time. Patient doesn't have any fevers. Denied much of the history from the patient patient is alert oriented 2 her baseline is unknown at this time. I transfer the patient consulted arthritic surgery here infectious disease will be consulted as well. Patient is also on tobramycin does have a PICC line unsure why she is on tobramycin we are trying to find out from the half-way where she is staying along his she is on tobramycin and the reason for tobramycin. was started on IV vancomycin. 12/03/2020 Patient underwent incision and drainage and debridement of the left shoulder and removal of intramedullary cammy and locking screws in the left shoulder. Patient is drowsy sleepy just came out of 4 unable to get much of the history from the patient. 12/04/2020 Patient is sleeping of bradycardia patient sleeps all day. Patient the doesn't know need is not taking any of her medications. Although patient is getting IV vancomycin. Patient is alert oriented 1. Patient is not agitated at this time. Patient did not have any fever but had some leukocytosis of 12,000 white blood cell count. Wound cultures are showing MRSA infectious disease is following the patient. 12/05/2020 Patient is seen in follow-up this morning and is being closely followed by orthopedics and has been cleared to return to [facility]. Patient does have a PICC line and will require 6 weeks of IV antibiotic therapy in the form of vancomycin with infectious disease following closely. Cultures are showing MRSA. Sodium is elevated at 145 and will discontinue IV fluids. Potassium found to be critically low at 2.9 and will replace per protocol and repeat labs. Patient will be returning to [facility] and awaiting authorization from insurance. Social work is following and working on discharge planning. 12/06/2020 Patient is seen and evaluated in follow up today and continues to refuse to eat and take medications stating she is tired and wants to be left alone. Encouraged oral intake and megase added. Patient had potassium replaced and repeat potassium is 3.8 today. Patient [id number] on IV vancomycin and trough high at 44 today and pharmacy to adjust dose. Infectious disease following closely. Patient has sling to the left upper extremity noted. Patient denies any chest pain or shortness of breath. Patient is afebrile. Patient was maintained on Ultram and has been discontinued as she continues to be extremely lethargic and will limit use of GEOPHYSICAL PROSPECTING SURVEYOR agents or narcotics. Continue with tylenol. Will repeat am labs and monitor closely. 12/07/2020 Patient is seen this morning continues to refuse medications and per nursing staff not eating and attempted swallow eval and patient did not want to continue and was unable to place lips around the straw to take a drink. Patient needs to be lethargic although is responding to questions and commands. Patient is not taking medications and will add IV Tylenol as needed and discussed with nursing staff about increasing activity and encouraging oral intake. Patient was taking baclofen which we'll discontinue as well and use Tylenol only for pain. Will continue to monitor closely and encourage oral intake. Plan is for return to [employer] and social work following and authorization has been obtained. Repeat labs show sodium is 144 and potassium is 3.4 and will replace. Her creatinine is 0.93 and repeat Vanco trough is 29.5 and pharmacy is dosing. I nfectious disease is following closely. Review of systems: Unable to obtain due to her clinical condition All inpatient medications were reviewed and appropriate changes in these medications as dictated in the interval history and assessment and plan. PHYSICAL EXAMINATION: GENERAL: The patient is alert and oriented x2, continued lethargy. Well developed, well nourished. Temp is 97.8F, pulse is 104, respirations are 24, blood pressure is 152/83, oxygen saturation is 95% on 2 L via nasal cannula. HEENT: Pupils are round and equally reacting to light. EOMI. No scleral icterus. No conjunctival pallor. Normocephalic, atraumatic. No pharyngeal erythema. No thyromegaly. CARDIOVASCULAR: S1 and S2 muffled. PULMONARY: diminished breath sounds bilaterally with no wheezing or crackles. ABDOMEN: Soft, nontender, nondistended, normoactive bowel sounds. No palpable organomegaly. MUSCULOSKELETAL: No joint swelling or deformity. EXTREMITIES: No cyanosis, clubbing, or pedal edema. Left shoulder dressing is dry and sling noted NEUROLOGICAL: Patient is confused unable to assess clearly doesn't appear to have any focal deficits SKIN: No rashes. Assessment and plan: -Altered mental status, toxic encephalopathy from left shoulder infection -possible vancomycin toxicity -Postoperative infection of the left shoulder, status post incision and drainage with removal of hardware with orthopedics with culture showing MRSA -History of dementia baseline is not clear -Hypokalemia -Gastroesophageal reflux disease -Hyperlipidemia -Hypertension -As per the history documented patient has history of seizures -DVT prophylaxis: Subcutaneous heparin -No code Plan: Continue to encourage increased oral intake. Megace added. Patient continues to refuse oral intake and is not taking medications and needs encouragement. Speech consulted for swallow eval and patient unable to purse lips around the straw to take a sip and did not want to continue with evaluation. Patient is maintained on IV antibiotics in the form of vancomycin and trough an closely monitored as trough was elevated yesterday. infectious disease following and plans are for continued IV antibiotic therapy for 6 weeks in the outpatient setting. Patient was seen and evaluated by orthopedics and has been cleared for discharge and recommending outpatient follow-up at their clinic. Patient continues to be lethargic although arousable and needs encouragement with meals and oral intake. Recommend discontinuing all narcotics including baclofen and will continue to monitor as patient continues to be lethargic. Will use Tylenol IV or by mouth as needed.. Potassium will be replaced as it is 3.4 today. Will repeat am labs and monitor closely. Social work is following and authorization from insurance has been obtained to return to [facility]. Prognosis is guarded. Objective - Vital Signs Vital signs: Vital Signs Temp 97.8 F 12/07/20 09:32 Pulse 104 H 12/07/20 09:32 Resp 24 12/07/20 09:32 BP 152/83 12/07/20 09:32 Pulse Ox 95 12/07/20 09:32 Intake & Output 12/06/20 12/07/20 12/07/20 18:59 06:59 18:59 Other: Voiding Method Diaper Diaper # Voids 3 1 # Bowel Movements 1 1 - Labs CBC & Chem 7: 12/06/20 11:38 12/07/20 07:49 Labs: Abnormal Lab Results - Last 24 Hours (Table) 12/06/20 12/07/20 Range/Units 11:38 07:49 Potassium 3.4 L (3.5-5.1) mmol/L Chloride 115 H (98-107) mmol/L Carbon Dioxide 17 L (22-30) mmol/L BUN 6 L (7-17) mg/dL Glucose 110 H (74-99) mg/dL Vancomycin Trough 44.3 H* ug/mL Microbiology - Last 24 Hours (Table) 12/03/20 09:15 Gram Stain - Final Shoulder - Left Wound Culture - Final Methicillin resist S. aureus 12/02/20 11:45 Anaerobic Culture - Final Shoulder - Left 12/03/20 09:15 Gram Stain - Final Shoulder - Left Wound Culture - Final Methicillin resist S. aureus 12/02/20 11:45 Gram Stain - Final Shoulder - Left Wound Culture - Final Methicillin resist S. aureus
[2020-12-07] MEDS: PANTOPRAZOLE 40 MG/10 ML VIAL IVP SCH (16:52)
[2020-12-07] MEDS: ACETAMINOPHEN IV (For NPO) 1,000 MG in EMPTY BAG 1 BAG IVPB SCH (19:00)
[2020-12-08] MEDS: ACETAMINOPHEN IV (For NPO) 1,000 MG in EMPTY BAG 1 BAG IVPB SCH ×3 (01:10→12:45)
[2020-12-08] MEDS: PANTOPRAZOLE 40 MG/10 ML VIAL IVP SCH ×2 (01:11→09:18)
[2020-12-08 09:08] LABS: African American GFR (CKD) 58 (>60 ml/min/1.73 sqM); Anion Gap 13 mmol/L; Blood Urea Nitrogen 9 mg/dL (7-17); Calcium 9.5 mg/dL (8.4-10.2); Carbon Dioxide 16 mmol/L (22-30); Chloride 114 mmol/L (98-107); Glucose 125 mg/dL (74-99); Non-African American GFR(CKD) 50 (>60 ml/min/1.73 sqM); Sodium 143 mmol/L (137-145)
[2020-12-08] MEDS: CHOLESTYRAMINE (WITH SUGAR) 4 GM PACKET PO SCH (09:17)
[2020-12-08] MEDS: DOCUSATE 100 MG CAP PO SCH (09:17)
[2020-12-08] MEDS: ATORVASTATIN 40 MG TAB PO SCH (09:17)
[2020-12-08] MEDS: MEGESTROL 400 MG/10 ML CUP PO SCH (09:18)
[2020-12-08] MEDS: polyethylene glycoL 3350 17 GM POWD.PACK PO SCH (09:18)
[2020-12-08] MEDS: METOPROLOL SUCCINATE (ER) 50 MG TAB.ER.24H PO SCH (09:18)
[2020-12-08] MEDS: MEMANTINE 10 MG TAB PO SCH (09:18)
[2020-12-08] MEDS: LACTOBACILLUS ACIDOPH & BULGAR 1 EACH PACKET PO SCH (09:18)
[2020-12-08 09:50] LABS: Vancomycin,Random 23.2 ug/mL
[2020-12-08] MEDS: HEPARIN SODIUM,PORCINE/PF 5,000 UNIT/0.5 ML SYRINGE SQ SCH (10:50)
[2020-12-08] MEDS ORDERED: FUROSEMIDE 10 MG/ML 4 ML VIAL IV STA (12:31)
--- NOTE | 2020-12-08 12:35 | XR ---
EXAMINATION TYPE: XR chest 1V portable DATE OF EXAM: 12/08/2020 Comparison: Shoulder radiograph 12/02/2020 Clinical History: 80 year-old female shortness of breath shortness of breath Findings: Multiple vertebroplasty changes lower thoracic and lumbar spine. Right PICC tip in SVC level. Heart i s enlarged. Diffuse interstitial opacities. Small effusions. Airspace opacity right upper lobe and le ft base. Fracture deformity partially visualized proximal left humerus. Impression: Correlate for CHF with developing pulmonary edema. Small effusions with adjacent atelectasis and/or c onsolidation. Partially visualized fracture deformity proximal left humerus.
--- NOTE | 2020-12-08 14:05 | P.DS ---
Providers Date of admission: 12/01/20 19:47 Expected date of discharge: 12/08/20 Attending physician: Matt Covarrubias Consults: 12/01/20 20:39 Consult Physician Routine Consulting Provider: Valerio Montanez Consult Reason/Comments: Post op infection Do you want consulting provider notified?: Yes Placement Type Exists?: Yes 12/02/20 11:27 Consult Physician Urgent Consulting Provider: Rachael Andrade Consult Reason/Comments: post-op left shoulder infection Do you want consulting provider notified?: Yes 12/02/20 11:28 Consult Physician Routine Consulting Provider: Rachael Andrade Consult Reason/Comments: Left shoulder infection Do you want consulting provider notified?: Yes Primary care physician: Matt Covarrubias Hospital Course: Final diagnosis -Altered mental status, toxic encephalopathy from left shoulder infection -possible vancomycin toxicity -Postoperative infection of the left shoulder, status post incision and drainage with removal of hardware with orthopedics with culture showing MRSA -History of dementia baseline is not clear -Hypokalemia -Gastroesophageal reflux disease -Hyperlipidemia -Hypertension -As per the history documented patient has history of seizures -DVT prophylaxis -No code Discharge disposition Patient is being discharged in a stable condition with guarded prognosis to [facility]. Patient will follow-up with Dr. Montanez in the outpatient setting upon discharge. Patient is to continue with IV antibiotics in the form of vancomycin per infectious disease recommendations. Total time taken is greater than 35 minutes. Hospital course This is an 80-year-old female who was recently transferred from [facility] for orthopedic evaluation as she recently underwent left shoulder surgery and was admitted here for altered mental status along with possible infection of the left shoulder. Orthopedics evaluated the patient and had hardware removal and incision and drainage of the left shoulder and recommending continued IV antibiotic therapy along with outpatient follow-up with Dr. Montanez. infectious disease also following and patient is continued on vancomycin and does have a PICC line and will continue with pharmacy to dose and close outpatient monitoring of Vanco trough and kidney functions. Patient continues to have intermittent confusion and increased lethargy and has not been eating or taking medications as scheduled. [employer]IPMENT REPA[employer]ER and narcotic agents have been discontinued and will continue with Tylenol for pain. Discussed at length with daughter who is her power of immigration attorney about the clinical status as patient is no code. Daughter agreeable to return to [facility] with discussion of possible palliative versus hospice once returning to [facility]. Recommend to continue with aspiration precautions of head of the bed elevated 30-45 and supervision with meals and encouragement with oral intake. Patient continues to refuse to take medication stating she does not want them and wants to be left alone. Daughter has been made aware of this. Currently no reports of chest pain, shortness of breath, or palpitations. Patient is afebrile. No reports of nausea or vomitingand continues with poor oral intake. Patient will be going to [facility] today With no return to hospital and power of immigration attorney is aware and agreeable with this and will discuss possible comfort measures. On exam vital signs are stable. Cardio S1, S2 are muffled. Respiratory system shows diminished breath sounds at the bases with no wheezing or rhonchi noted. Abdomen is soft and nontender. Nervous system shows diffuse weakness. Please refer to medication reconciliation sheet for a list of medications. Patient Condition at Discharge: Fair Plan - Discharge Summary Discharge Rx Participant: No New Discharge Prescriptions: New Ibuprofen [Advil] 200 mg PO Q6HR PRN tab PRN Reason: Pain QUEtiapine [SEROquel] 12.5 mg PO HS PRN tab PRN Reason: Agitation Potassium Bicarbonate/Cit AC [K-Lyte] 10 meq PO DAILY #30 tablet.eff Heparin Sodium,Porcine [Heparin Sodium] 5,000 unit SQ Q12HR #2 vial Megestrol [Megace] 400 mg PO DAILY ml Furosemide [Lasix] 20 mg PO DAILY 30 Days #30 tab Continue Metoprolol Succinate [Toprol XL] 50 mg PO HS@2100 Cholestyramine (with Sugar) [Questran Packet] 4 gm PO DAILY@0900 Atorvastatin [Lipitor] 40 mg PO HS@2100 Calcium Carbonate [Tums] 1,000 mg PO TID PRN PRN Reason: GI UPSET/HEARTBURN Magnesium Hydroxide [Milk of Magnesia] 2,400 mg PO Q72H PRN PRN Reason: Constipation Polyethylene Glycol 3350 [Miralax] 17 gm PO DAILY@0900 Acetaminophen [Tylenol] 500 mg PO Q6H PRN PRN Reason: Mild Pain Or Fever > 100.5 Memantine [Namenda] 10 mg PO BID@0900,2100 Omeprazole 20 mg PO DAILY@0600 Magnesium Hydroxide [Milk of Magnesia Concentrate] 2,400 mg PO DAILY PRN PRN Reason: Constipation Docusate [Colace] 100 mg PO BID@0900,2100 Discontinued traMADol HCL 100 mg PO Q12H PRN PRN Reason: Pain Lactobacillus Acidophilus [Acidophilus] 1 tab PO BID@0900,1700 Venlafaxine HCl ER [Effexor Xr] 150 mg PO DAILY@0900 traMADol HCL 100 mg PO Q8H Ibuprofen [Motrin] 400 mg PO Q6HR PRN PRN Reason: Pain Tobramycin 140mg In 100ml 140 mg IVPB DAILY Discharge Medication List Acetaminophen [Tylenol] 500 mg PO Q6H PRN 12/01/20 [History] Atorvastatin [Lipitor] 40 mg PO HS@209912/01/20 [History] Calcium Carbonate [Tums] 1,000 mg PO TID PRN 12/01/20 [History] Cholestyramine (with Sugar) [Questran Packet] 4 gm PO DAILY@89912/01/20 [History] Docusate [Colace] 100 mg PO BID@0900,209912/01/20 [History] Magnesium Hydroxide [Milk of Magnesia Concentrate] 2,400 mg PO DAILY PRN 12/01/20 [History] Magnesium Hydroxide [Milk of Magnesia] 2,400 mg PO Q72H PRN 12/01/20 [History] Memantine [Namenda] 10 mg PO BID@0900,209912/01/20 [History] Metoprolol Succinate [Toprol XL] 50 mg PO HS@209912/01/20 [History] Omeprazole 20 mg PO DAILY@0600 12/01/20 [History] Polyethylene Glycol 3350 [Miralax] 17 gm PO DAILY@0912/01/20 [History] Furosemide [Lasix] 20 mg PO DAILY 30 Days #30 tab 12/08/20 [Rx] Heparin Sodium,Porcine [Heparin Sodium] 5,000 unit SQ Q12HR #2 vial 12/08/20 [Rx] Ibuprofen [Advil] 200 mg PO Q6HR PRN tab 12/08/20 [Rx] Megestrol [Megace] 400 mg PO DAILY ml 12/08/20 [Rx] Potassium Bicarbonate/Cit AC [K-Lyte] 10 meq PO DAILY #30 tablet.eff 12/08/20 [Rx] QUEtiapine [SEROquel] 12.5 mg PO HS PRN tab 12/08/20 [Rx] Follow up Appointment(s)/Referral(s): Gurdeep Vargas, AFUA [PHYSICIAN [employer] REPAIRER] - 12/22/20 10:20 am Activity/Diet/Wound Care/Special Instructions: Patient is returning to [facility] as tolerated Continue with arm sling on the left upper extremity follow up with orthopedics outpatient Continue with heparin subcu twice daily Continue to encourage oral intake as tolerated Continue with the head of the bed elevated 30-45 and supervision with meals and monitor closely for aspiration precautions Continue with IV antibiotics in the form of vancomycin with pharmacy to dose and close trough levels and creatinine clearance monitoring Patient returning to [facility] with no return the hospital and discussion of possible palliative versus hospice Continue with no CODE STATUS Orthopedic discharge instructions: 1. Utilize arm sling 2. Keep incision clean and dry, keep covered when showering 3. Ice the shoulder as needed 4. [facility] Discharge Disposition: TRANSFER TO SNF/ECF
[2020-12-08 14:30] VITALS: BP 140/78; PULSE 98; RESP 19; TEMP 98.1
--- NOTE | 2020-12-08 18:22 | PN ---
PROGRESS NOTE DATE OF SERVICE: 12/08/2020 REASON FOR FOLLOWUP: Left shoulder abscess and infected hardware. INTERVAL HISTORY: The patient is afebrile, the patient is breathing comfortably on nasal cannula oxygen. The patient remains to be nonverbal. No vomiting, diarrhea or other changes reported by the nursing staff. PHYSICAL EXAMINATION: Blood pressure 140/78 with a pulse of 98, temperature 98.1. She is 97% on 2 L nasal cannula. General description is an elderly female lying in bed in no distress. Respiratory system: Unlabored breathing, clear to auscultation anteriorly. Heart S1, S2. Regular, rate and rhythm. Abdomen soft, no tenderness. Left shoulder is currently dressed. No drainage on the dressing. LABS: BUN of 9, creatinine 1.04. DIAGNOSTIC IMPRESSION AND PLAN: Patient with left shoulder infection with infected hardware which has been removed. Culture has been positive for MRSA. Consideration for possible hospice as per discussion with the nursing staff. Patient to continue vancomycin until that decision is made. Prognosis remains to be guarded. MMODL / IJN: [id number] /
[2020-12-09] MEDS ORDERED: VANCOMYCIN 1,000 MG in SODIUM CHLORIDE 0.9% 250 ML IVPB ONE (06:00)
== END 2020-12-08 16:29 | DRG 856 ==
LOC: 4SSUR 19:47
PROVIDERS: ADMIT Internal Medicine; ATTEND Internal Medicine
PROC: 0RBK0ZZ Excision of Left Shoulder Joint, Open Approach (ICD-10-PCS; principal; 2020-12-03 08:00)
DX: T81.49XA Infection following a procedure, other surgical site, initial encounter (principal); G92 Toxic encephalopathy; L02.414 Cutaneous abscess of left upper limb; S42.202G Unspecified fracture of upper end of left humerus, subsequent encounter for fracture with delayed healing; B95.62 Methicillin resistant Staphylococcus aureus infection as the cause of diseases classified elsewhere; E78.5 Hyperlipidemia, unspecified; E87.6 Hypokalemia; F03.90 Unspecified dementia, unspecified severity, without behavioral disturbance, psychotic disturbance, mood disturbance, and anxiety; G40.909 Epilepsy, unspecified, not intractable, without status epilepticus; F32.9 Major depressive disorder, single episode, unspecified; T36.8X5A Adverse effect of other systemic antibiotics, initial encounter; I10 Essential (primary) hypertension; K21.9 Gastro-esophageal reflux disease without esophagitis; Z20.822 Contact with and (suspected) exposure to COVID-19; Z79.899 Other long term (current) drug therapy; Z88.5 Allergy status to narcotic agent; Z88.8 Allergy status to other drugs, medicaments and biological substances; X58.XXXA Exposure to other specified factors, initial encounter
CPT/HCPCS: 71045; 80048; 80053; 80202; 82565; 84132; 85025; 85027; 85610; 86140; 87070; 87075; 87077; 87186; 87205; 94760